=== PATIENT | female | born 1965 | race Caucasian/White ===

== ENCOUNTER 2016-09-16 17:29 | Inpatient (IN) ==
[~2016-09-16 17:29] MED LIST: *HR* Etomidate 20 MG/10 ML AMPUL IVP ONE; *HR* Midazolam HCl 2 MG/2 ML VIAL IV ONE; *HR* Succinylcholine 200 MG/10 ML VIAL IVP ONE
[2016-09-16] MEDS ORDERED: Ipratropium/Albuterol Neb 3 ML IH ONE (17:47)
--- NOTE | 2016-09-16 17:47 | Emergency Department Note ---
Disposition Clinical Impression: Acute exacerbation of chronic obstructive airways disease, Hypoxia Disposition: Home, Self-Care Condition: Fair Referrals: Elizabeth Celeste DO [Primary Care Provider] - Forms: ED Satisfaction Letter SOB HPI - General Chief Complaint: ED Shortness of Breath/Dyspnea Stated Complaint: COPD EXAC Time Seen by Provider: 09/16/16 17:45 Nursing Notes Reviewed: Yes Vital Signs Reviewed: Yes - Related Data Previous Rx's Medication Instructions Recorded Doxycycline 100 mg PO BID #4 capsule 08/08/16 Lidocaine Patch [Lidoderm 5% patch] 1 each TP DAILY #7 adh..patch 08/08/16 Methadone 65 mg PO DAILY tablet 08/08/16 Nicotine Patch [Nicoderm] 7 mg TD DAILY #14 patch.td24 08/08/16 Omeprazole 20 mg PO DAILY #10 tablet.dr 08/08/16 PredniSONE See Taper PO DAILY #11 tablet 08/08/16 Ropinirole [Requip] 1 mg PO TID tablet 08/08/16 Allergies Allergy/AdvReac Type Severity Reaction Status Date / Time tramadol Allergy Itching Verified 08/03/16 15:58 ketorolac [From Toradol] AdvReac Headache Verified 08/03/16 14:05 nalbuphine [From Nubain] AdvReac Vomiting Verified 08/03/16 14:05 Past Medical History - Past Medical History Medical history: Reports: CHF, COPD, osteoporosis Surgical history: Reports: breast surgery, - Social History Smoking Status: Current every day smoker Alcohol use: Reports: none Drug use: Reports: none Course Vital Signs Temperature 100.1 F H 09/16/16 17:47 Pulse Rate 117 09/16/16 17:47 Respiratory Rate 24 09/16/16 17:47 Blood Pressure 157/91 09/16/16 17:47 O2 Sat by Pulse Oximetry 94 L 09/16/16 17:47 Temperature 100.1 F H 09/16/16 17:47 Pulse Rate 113 09/16/16 20:06 Respiratory Rate 18 09/16/16 20:06 Blood Pressure 168/94 09/16/16 20:06 O2 Sat by Pulse Oximetry 89 L 09/16/16 20:06 Oxygen Delivery Oxygen Delivery Nasal Cannula Shortness of Breath/Dyspnea - MDM Narrative Medical decision making narrative: I examined this patient and my medical decision-making was reviewed with the ACCOUNTS RECEIVABLE ACCOUNTANT/PA/Advanced Practice Nurse/Resident Physician. I agree with the documented findings, disposition and treatment plan as described except to the extent set forth below. I evaluated this patient with Dr. Shultz group his evaluation and treatment plan, I supervised the care of the patient on stay. Patient's well-known to our ER shows COPD. She said she did not think she has pneumonia she has been coughing with some clear she has a problem with kyphosis and it is difficult for her to get good air in the base of her lungs she has wheezing. She did get [address] here. Last her second set of breathing treatments check a chest x-ray make sure she does not have pneumonia and then reassess. She is in agreement with this plan. Chest X-Ray 09/16/16 17:47 IMPRESSION: Emphysematous change. No evidence of acute disease. D/ / Flex Reed MD / Flex Reed MD Interpreting Provider: Flex Reed MD 1846 hrs.: Patient says she is feeling better. After respiratory was done with her treatment they left her off oxygen so she desatted. Back on oxygen and give her dose of steroids and reassessed. She still tachycardic lungs are more clear she is not coughing. 1940 hrs.: Patient did get nauseous here she is not certain why she did vomit times one. She denies any chest pain. She thinks her breathing is better. She up and ambulated and she desatted down to 63%. Her back on her oxygen was negative some lab work gave her something for nausea and will admit her to the hospital she is in agreement with this plan. Impression skin exacerbation of COPD with emphasema. Hypoxia. - Lab Data Result diagrams: 09/16/16 19:39 09/16/16 19:39 Lab Results 09/16/16 09/16/16 09/16/16 Range/Units 19:39 19:39 19:39 WBC 10.2 (4.3-11.1) K/mcL RBC 3.62 L (3.82-4.97) M/mcL Hgb 11.0 L (11.5-15.4) g/dL Hct 34.8 L (35.3-44.9) % MCV 96.1 (83.0-100.0) fL MCH 30.4 (28.0-33.3) pg MCHC 31.6 (31.6-35.5) g/dL RDW 14.4 (11.5-14.5) % Plt Count 163 (140-400) K/mcL MPV 9.5 (9.4-12.4) fL Seg Neutrophils % 82.0 % Band Neutrophils % 8.0 H (0-4) % Lymphocytes % 8.0 % Monocytes % 2.0 % Neutrophils # 9.2 H (1.6-8.9) K/mcL Lymphocytes # 0.8 (0.6-4.6) K/mcL Monocytes # 0.2 (0.0-1.3) K/mcL Platelet Estimate Normal (Normal) Immature Plt Fraction 2.2 (1.1-6.1) % Sodium 140 (136-145) mEq/L Potassium 3.2 L (3.5-4.5) mEq/L Chloride 105 (98-109) mEq/L Carbon Dioxide 25 (19-29) mEq/L BUN 13 (7-20) mg/dL Creatinine 1.18 H (0.57-1.11) mg/dL Est GFR ( Amer) 58 L (> 60) Est GFR (Non-Af Amer) 48 L (> 60) BUN/Creatinine Ratio 11 (6-26) Glucose 113 H (70-99) mg/dL Calculated Osmolality 291 (280-300) Calcium 9.4 (8.6-10.8) mg/dL Troponin I 0.01 (0-0.03) ng/mL
--- NOTE | 2016-09-16 17:51 | Emergency Department Note ---
Disposition Clinical Impression: Acute exacerbation of chronic obstructive airways disease, Hypoxia Disposition: Home, Self-Care Condition: Fair Referrals: Elizabeth Celeste DO [Primary Care Provider] - Forms: ED Satisfaction Letter Time of Disposition: 19:37 SOB HPI - General Chief Complaint: ED Shortness of Breath/Dyspnea Stated Complaint: COPD EXAC Time Seen by Provider: 09/16/16 17:45 Source: patient Mode of arrival: EMS Limitations: no limitations Nursing Notes Reviewed: Yes Vital Signs Reviewed: Yes - History of Present Illness 51-year-old female with a history of COPD and ongoing tobacco abuse presents to the emergency department for evaluation shortness of breath, cough and congestion. Patient states her symptoms going on now for several days and she feels like she is having another COPD exacerbation. Patient says she's cut back on her smoking and only smokes approximately 5-6 cigarettes a day. She states she is having increasing and production of her cough states that is beginning to turn a dark yellow. She denies any nausea or vomiting. She does state that she has chest wall pain with coughing. She denies any fevers or chills. Exam is remarkable for middle-aged female who appears much older than her stated age. Patient is oriented and well-appearing with a market kyphosis. Lungs are diminished with expiratory wheezing and rhonchi throughout bilateral lung canales. Heart is tachycardic but regular. Her abdomen is soft and surgically benign. Nebulizers and chest x-ray ordered. Pt Subjective Complaint: shortness of breath, cough Onset (ago): day(s) Context: recent illness Severity: moderate Improves with: oxygen, bronchodilators Worsens with: nothing Known history of: COPD Associated symptoms: Reports: cough, wheezing, sputum production Treatment prior to arrival: oxygen, bronchodilator Cough present: Yes Cough Description: Voluntary Cough Frequency: Intermittent Sputum production: Yes Sputum Amount: Moderate Sputum Color: Yellow - Related Data Previous Rx's Medication Instructions Recorded Doxycycline 100 mg PO BID #4 capsule 08/08/16 Lidocaine Patch [Lidoderm 5% patch] 1 each TP DAILY #7 adh..patch 08/08/16 Methadone 65 mg PO DAILY tablet 08/08/16 Nicotine Patch [Nicoderm] 7 mg TD DAILY #14 patch.td24 08/08/16 Omeprazole 20 mg PO DAILY #10 tablet. 08/08/16 PredniSONE See Taper PO DAILY #11 tablet 08/08/16 Ropinirole [Requip] 1 mg PO TID tablet 08/08/16 Allergies Allergy/AdvReac Type Severity Reaction Status Date / Time tramadol Allergy Itching Verified 08/03/16 15:58 ketorolac [From Toradol] AdvReac Headache Verified 08/03/16 14:05 nalbuphine [From Nubain] AdvReac Vomiting Verified 08/03/16 14:05 All systems ED: reviewed and negative except as stated. Constitutional: Denies: fever, chills Cardiovascular: Denies: chest pain, palpitations, dyspnea on exertion Respiratory: Reports: cough, dyspnea, wheezes Gastrointestinal: Denies: abdominal pain, nausea, vomiting Genitourinary: Denies: urgency, dysuria Musculoskeletal: Denies: back pain Integumentary: Denies: rash Neurological: Reports: headache. Denies: weakness Past Medical History - Past Medical History Medical history: Reports: CHF, COPD, osteoporosis Surgical history: Reports: breast surgery, - Social History Smoking Status: Current every day smoker Alcohol use: Reports: none Drug use: Reports: none Physical Exam - General Limitations: no limitations General appearance: alert, in no apparent distress - Head Head exam: atraumatic, normocephalic, normal inspection - Neck Neck exam: Present: other (Marked kyphosis) - Chest Chest inspection: Present: normal inspection, symmetric chest wall rise - Respiratory Respiratory exam: Present: wheezes, prolonged expiratory phase, other ( Expiratory wheezing and rhonchi noted throughout bilateral lung canales.) - Cardiovascular Cardiovascular exam: Present: normal rhythm, tachycardia, normal heart sounds - Abdominal Exam Abdominal exam: Present: soft, Non-Tender. Absent: tenderness, distention, guarding, rebound, rigidity - Back Exam Back exam: Present: other (Marked kyphosis of the thoracic spine) - Neurological Exam Neurological exam: Present: alert, oriented X3 - Skin Skin exam: Present: warm, dry, intact, normal color Course - Reevaluation(s) Reevaluation #1: Patient remains tachycardic and hypoxic despite nebulizers and steroids. Patient has several episodes of vomiting after nebulizers. Discussed findings with patient she is agreeable for admission. Time: 19:34 Reevaluation #2: Patient was off oxygen for short period of time to go the bathroom. When she returned her O2 saturation was 63% on room air. Patient was placed back on 4 L and increased up to 82%. She is tachycardic at 122 and tachypnea At 26 breaths per minute. Time: 19:54 Vital Signs Temperature 100.1 F H 09/16/16 17:47 Pulse Rate 117 09/16/16 17:47 Respiratory Rate 24 09/16/16 17:47 Blood Pressure 157/91 09/16/16 17:47 O2 Sat by Pulse Oximetry 94 L 09/16/16 17:47 Temperature 100.1 F H 09/16/16 17:47 Pulse Rate 108 09/16/16 19:30 Respiratory Rate 18 09/16/16 19:30 Blood Pressure 133/87 09/16/16 19:30 O2 Sat by Pulse Oximetry 93 L 09/16/16 19:30 Oxygen Delivery Oxygen Delivery Nasal Cannula Shortness of Breath/Dyspnea - Medical Records Medical records reviewed: Yes I reviewed the patient's medical records. - Radiology Data Radiology results reviewed: Yes I reviewed the patient's radiology results. - EKG Data EKG attestation: Yes I reviewed and interpreted this EKG. EKG shows normal: Reports: sinus rhythm Rate: Reports: tachycardia Rhythm: Reports: NSR [place]/QRS: Reports: normal Interpretation: Reports: no acute changes
[2016-09-16] MEDS ORDERED: methylPREDNISolone 125 MG/2 ML VIAL IV ONE (18:45)
[2016-09-16] MEDS ORDERED: *HR* Promethazine 25 MG/ML VIAL IVP ONE (19:25)
[2016-09-16] MEDS ORDERED: Ondansetron 4 MG/2 ML VIAL IV ONE (19:26)
[2016-09-16 19:49] LABS: Hematocrit 34.8 % (35.3-44.9); Immature Platelets 2.2 % (1.1-6.1); Mean Corpuscular HGB Conc 31.6 g/dL (31.6-35.5); Mean Corpuscular Hemoglobin 30.4 pg (28.0-33.3); Mean Corpuscular Volume 96.1 fL (83.0-100.0); Mean Platelet Volume 9.5 fL (9.4-12.4); Platelet Count 163 K/mcL (140-400); Red Blood Count 3.62 M/mcL (3.82-4.97); Red Cell Distribution Width 14.4 % (11.5-14.5)
[2016-09-16 20:04] LABS: Calcium 9.4 mg/dL (8.6-10.8); Potassium 3.2 mEq/L (3.5-4.5)
[2016-09-16 20:21] LABS: Lymphocytes # 0.8 K/mcL (0.6-4.6); Monocytes # 0.2 K/mcL (0.0-1.3); Neutrophils # 9.2 K/mcL (1.6-8.9)
[2016-09-16 20:22] LABS: Platelet Estimate Normal (Normal)
--- NOTE | 2016-09-16 22:35 | Internal Med History&Physical ---
Date of Encounter: 09/16/16 Time of Encounter: 22:33 Assessment and Plan (1) Acute bronchitis Current visit: Yes Status: Acute She is having fevers increased sputum production and worsening shortness of breath. Requiring 4 to 6 L of oxygen in the ER. Acute bronchitis versus pneumonia. will start the patient forms zosyn. I will get sputum on blood cultures. Qualifiers: Qualified Code(s): J20.9 - Acute bronchitis, unspecified (2) Acute exacerbation of chronic obstructive airways disease Current visit: Yes Status: Acute IV steroids and q4h breathing treatments. (3) Malnutrition Current visit: No Status: Chronic Patient's body mass indexes 15 kg/m mentioned that she had lost 20 to 30 pounds in the past six-month malignancy has to be. CT scan of the chest has not been performed before we get chest CT after hydration to avoid kidney injury as this is elective to r/o lung mass. She is a lifelong smoker still smokes. Healthcare Receptionist consultation (4) Respiratory failure Current visit: No Status: Chronic Hypoxic respiratory failure due to COPD exacerbation and suspected pneumonia Qualifiers: Chronicity: chronic Respiratory failure complication: hypoxia Qualified Code(s): J96.11 - Chronic respiratory failure with hypoxia Internal Medicine - H&P: HPI Chief complaint: sob History of present illness: Ms. Haley is a 51 year old female with history of COPD 2L home oxygen recently hospitalized last month for COPD exacerbation presents with shortness of breath and cough. For the past 2 days she has been having productive cough of yellowish sputum fevers and chills up to hundred .1 honorable to emergency room in addition to shortness of breath. She has been requiring 4- 6 L of oxygen in the emergency room to keep your saturation above 80%. She also mentioned that she has been losing weight significantly lost approximately 20 to 30 pounds in the past 6 months. She has also been complaining of headaches in the frontal areas and neck pain. No confusion. No focal upper or lower extremity weakness. Headaches are more or less chronic is not a new complaint. She is not in any antiplatelet or anticoagulant medications. Past Med Surg Social Fam HX - Past Medical History Medical history: CHF, COPD, osteoporosis Psychiatric history: no psych history - Past Surgical History Surgical History: breast surgery, - Social History Smoking Status: Current every day smoker Smokeless Tobacco Status: No Alcohol use: none Drug use: none - Family History Mother Hx Family Cardiac Disorders: Yes (chf) Internal Medicine - H&P: Meds Aclidinium [place] [Tudorza Pressair] 400 mcg IH BID 09/16/16 [History] Albuterol Sulfate [Proair Hfa] 1 puff IH Q4H PRN 09/16/16 [History] Fluticasone/Salmeterol [Advair 100-50 Diskus] 1 puff IH BID 09/16/16 [History] GuaiFENesin ER [Mucinex] 600 mg PO BID 09/16/16 [History] Lisinopril/Hydrochlorothiazide [Zestoretic 20-25 mg Tablet] 1 tab PO DAILY 09/16 [History] Methadone Oral Concentrate [Methadone] 65 mg PO DAILY 09/16/16 [History] Omeprazole [PriLOSEC] 20 mg PO DAILY 09/16/16 [History] Ropinirole HCl [Requip] 5 - 10 mg PO DAILY 09/16/16 [History] Allergies iodine Allergy (Verified 09/16/16 22:18) See Comments PATIENT DOES NOT KNOW REACTION- LISTED ON [facility] LAST APPT tramadol Allergy (Verified 08/03/16 15:58) Itching ketorolac [From Toradol] Adverse Reaction (Verified 08/03/16 14:05) Headache nalbuphine [From Nubain] Adverse Reaction (Verified 08/03/16 14:05) Vomiting All Systems PM: A 10-system review of systems was performed and is negative for pertinent findings except as documented above in the HPI. Review of systems: 10 point review systems is negative except for HPI - Constitutional Vitals: Temp Pulse Resp BP Pulse Ox 98 F 110 18 138/68 98 09/16/16 21:53 09/16/16 21:53 09/16/16 21:53 09/16/16 21:53 09/16/16 21:53 Exam: Gen.: patient is alert and oriented times 3 stress. Cachectic Serena: normal S1 S2 no additional sounds murmurs tachycardic. Chest: course with sounds diffusely expiratory wheezing NO CRACKLES abdomen: soft nontender nondistended normal BS lower extremity lax calf muscles Internal Med - H&P Results - Labs CBC & Chem 7: 09/16/16 19:39 09/16/16 19:39
[2016-09-16] MEDS ORDERED: *HR* HYDROcodone/Acet 5/325 mg TABLET PO PRN (22:49)
[2016-09-16 23:14] LABS: ABG HCO3 29.7 mEQ/L (21-27); ABG Oxygen Saturation 81 % (95-98); ABG PO2 56 mmHg (85-104); Blood Gas FiO2 36 %
[2016-09-16 23:16] LABS: ABG PCO2 76 mmHg (35-45)
[2016-09-16] MEDS: Piperacillin/Tazobactam 3.375 GM in D5% in Water (Mini-Bag+) 100 ML IVPB SCH (23:18)
[2016-09-16] MEDS ORDERED: Vancomycin 500 MG in D5% in Water 250 ML IVPB SCH (23:45)
[2016-09-16] MEDS ORDERED: Levofloxacin 750 MG/150 ML 750 MG/150 ML BAG IVPB SCH (23:45)
[2016-09-17] MEDS ORDERED: Ipratropium/Albuterol Neb 3 ML IH SCH
[2016-09-17] MEDS ORDERED: MethylPREDNISolone 40 MG/ML VIAL IVP SCH
[2016-09-17] MEDS: methylPREDNISolone 125 MG/2 ML VIAL IVP SCH ×5 (00:04→23:15)
[2016-09-17] MEDS: Ipratropium/Albuterol Neb 3 ML IH SCH ×9 (00:37→23:20)
[2016-09-17 00:52] LABS: Basophils % 0.2 %; Hematocrit 35.7 % (35.3-44.9); Hemoglobin 11.3 g/dL (11.5-15.4); Immature Granulocytes % 0.6 % (0-4); Immature Platelets 2.7 % (1.1-6.1); Lymphocytes # 1.3 K/mcL (0.6-4.6); Lymphocytes % 10.6 %; Mean Corpuscular HGB Conc 31.7 g/dL (31.6-35.5); Mean Corpuscular Hemoglobin 30.4 pg (28.0-33.3); Mean Platelet Volume 9.7 fL (9.4-12.4); Monocytes # 0.1 K/mcL (0.0-1.3); Neutrophils # 10.6 K/mcL (1.6-8.9); Platelet Count 163 K/mcL (140-400); Red Blood Count 3.72 M/mcL (3.82-4.97); Red Cell Distribution Width 14.3 % (11.5-14.5); Segmented Neutrophils % 87.6 %
[2016-09-17] MEDS ORDERED: Vancomycin 500 MG in D5% in Water (Mini-Bag+) 100 ML IVPB SCH ×2 (01:00→21:00)
[2016-09-17 01:05] LABS: BUN/Creatinine Ratio 12 (6-26); Blood Urea Nitrogen 13 mg/dL (7-20); Calcium 9.2 mg/dL (8.6-10.8); Carbon Dioxide 22 mEq/L (19-29); Chloride 104 mEq/L (98-109); Glucose 186 mg/dL (70-99); Magnesium 1.9 mg/dL (1.6-2.6); Osmolality,Calculated 291 (280-300); Potassium 3.9 mEq/L (3.5-4.5); Sodium 138 mEq/L (136-145); eGFR For African Americans > 60 (> 60); eGFR For Non-African Americans 54 (> 60)
[2016-09-17 01:29] LABS: Amphetamine Screen,Urine Negative ng/mL (Cutoff=1000); Barbiturate Screen,Urine Negative ng/mL (Cutoff=200); Benzodiazepines Screen,Urine Negative ng/mL (Cutoff=200); Cannabinoid Screen,Urine Negative ng/mL (Cutoff = 50); Cocaine Screen,Urine Negative ng/mL (Cutoff= 300); Opiate Screen,Urine Negative ng/mL (Cutoff=300); Phencyclidine Screen,Urine Negative ng/mL (Cutoff=25)
[2016-09-17 02:30] LABS: ABG Base Excess 0.7 mEq/L (-2.0 to 3.0); ABG HCO3 29.7 mEQ/L (21-27); ABG Oxygen Saturation 79 % (95-98); ABG PH 7.23 pH Units (7.32-7.45); ABG PO2 52 mmHg (85-104); ABG TCO2 31.9 mEq/L (20-26); Blood Gas FiO2 32 %
[2016-09-17 02:32] LABS: ABG PCO2 71 mmHg (35-45)
[2016-09-17] MEDS: *HR* Heparin 5,000 UNIT/ML VIAL SQ SCH ×2 (04:55→16:58)
[2016-09-17 05:04] LABS: ABG Base Excess 0.4 mEq/L (-2.0 to 3.0); ABG HCO3 29.3 mEQ/L (21-27); ABG Oxygen Saturation 100 % (95-98); ABG PH 7.23 pH Units (7.32-7.45); ABG PO2 315 mmHg (85-104); ABG TCO2 31.4 mEq/L (20-26)
[2016-09-17 05:08] LABS: Blood Gas FiO2 100 %
[2016-09-17 05:11] LABS: ABG PCO2 70 mmHg (35-45)
[2016-09-17] MEDS ORDERED: Famotidine 20 MG TABLET PO SCH (06:30)
[2016-09-17 06:57] LABS: Bilirubin,Urine Negative (Negative); Blood,Urine Negative (Negative); Clarity,Urine Clear (Clear); Color,Urine Yellow (Yellow); Glucose,Urine (UA) 250 mg/dL (Normal); Ketones,Urine Negative (Negative); Leukocyte Esterase,Urine Negative (Negative); Nitrite,Urine Negative (Negative); Protein,Urine 100 mg/dL (Neg-Trace); Specific Gravity,Urine 1.021 (1.010-1.025); Urobilinogen,Urine Normal (Normal)
[2016-09-17 06:59] LABS: Bacteria,Urine None Seen per hpf (None-Few); Hyaline Casts,Urine None Seen per lpf (None-Few); Squamous Epithelial Cell,Urine Many per lpf (None-Few); WBC,Urine 0-3 per hpf (0-3)
[2016-09-17] MEDS: Piperacillin/Tazobactam 3.375 GM in D5% in Water (Mini-Bag+) 100 ML IVPB SCH (07:14)
[2016-09-17] MEDS: rOPINIRole 3 MG, rOPINIRole 2 MG PO SCH (07:14)
[2016-09-17] MEDS: Budesonide/Formoterol 80/4.5 MDI IH SCH ×2 (07:33→19:46)
--- NOTE | 2016-09-17 07:33 | Pulmonology Consult Note ---
<JeseniaMarc navarro James - Last Filed: 09/17/16 11:57> Date of Encounter: 09/17/16 Time of Encounter: 07:33 Assessment and Plan (1) Acute on chronic respiratory failure with hypercapnia Current Visit: Yes Status: Acute Likely related to COPD exacerbation as discussed below. Intubated and mechanically ventilated. Appears to be improving. Possible attempt at liberation later today. (2) Acute exacerbation of chronic obstructive airways disease Current Visit: Yes Status: Acute Patient has respiratory failure related to an acute exacerbation of COPD. Patient has severe hyperinflation on chest x-ray. Patient is currently on mechanical ventilation which we are adjusting based on ABGs. Ventilation is improving. Patient is on Solu-Medrol 60 mg every 6 hours, bronchodilators, Levaquin. (3) History of drug abuse Current Visit: Yes Status: Acute Patient reportedly has a significant history of drug abuse. She is currently on methadone treatment. There is also reported history of methamphetamine abuse. Drug screen was negative. This is likely contributing to her significant weight loss. (4) DVT prophylaxis Current Visit: Yes Status: Acute Heparin 5000 units subcutaneous twice a day. History of Present Illness Consult date: 09/17/16 Requesting physician: Venancio Valdes Reason for consult: COPD Chief complaint: Dyspnea History of present illness: Patient is a 51-year-old female with history of COPD who presents with shortness of breath. Apparently the patient was having progressive shortness of breath with cough and sputum production. Upon arrival to the emergency department she was found to be in respiratory distress and was subsequently intubated. Unfortunately there is no family at the bedside so the history somewhat limited. At the time of my exam the patient is awake and alert but sedated and appears comfortable. Past Med Surg Social Fam HX - Past Medical History Medical history: CHF, COPD, osteoporosis Psychiatric history: no psych history - Past Surgical History Surgical History: breast surgery, - Social History Smoking Status: Current every day smoker Smokeless Tobacco Status: No Alcohol use: none Drug use: none - Family History Mother Hx Family Cardiac Disorders: Yes (chf) Medications and Allergies Aclidinium [place] [Tudorza Pressair] 400 mcg IH BID 09/16/16 [History] Albuterol Sulfate [Proair Hfa] 1 puff IH Q4H PRN 09/16/16 [History] Fluticasone/Salmeterol [Advair 100-50 Diskus] 1 puff IH BID 09/16/16 [History] GuaiFENesin ER [Mucinex] 600 mg PO BID 09/16/16 [History] Lisinopril/Hydrochlorothiazide [Zestoretic 20-25 mg Tablet] 1 tab PO DAILY 09/16 [History] Methadone Oral Concentrate [Methadone] 65 mg PO DAILY 09/16/16 [History] Omeprazole [PriLOSEC] 20 mg PO DAILY 09/16/16 [History] Ropinirole HCl [Requip] 5 - 10 mg PO DAILY 09/16/16 [History] Allergies iodine Allergy (Verified 09/16/16 22:18) See Comments PATIENT DOES NOT KNOW REACTION- LISTED ON [facility] LAST APPT tramadol Allergy (Verified 08/03/16 15:58) Itching ketorolac [From Toradol] Adverse Reaction (Verified 08/03/16 14:05) Headache nalbuphine [From Nubain] Adverse Reaction (Verified 08/03/16 14:05) Vomiting ROS unobtainable: due to endotracheal tube All Systems: A 10-system review of systems was performed and is negative for pertinent findings except as documented above in the HPI. Physical Examination Vital Signs: Vital Signs, Last 4 Hours Temp Pulse Resp BP Pulse Ox 09/17/16 07:00 85 18 150/95 98 09/17/16 06:00 83 16 96/71 100 09/17/16 04:52 83 16 96/71 100 09/17/16 04:05 98.4 F 92 16 89/67 70 L General appearance: no acute distress ENT: oropharynx moist Effort: normal Auscultation: bilateral: diminished breath sounds (Severely) Cardiovascular: regular rate and rhythm Gastrointestinal: normoactive bowel sounds, soft, non-tender, non-distended Extremities: no cyanosis, no edema, no clubbing non-focal exam, unable to assess due to mental status Ventilator Settings Ventilator Settings: Ventilator Settings, Last 8 Hours Ventilator Mode A/C Ventilator Mode A/C Ventilator Mode A/C Ventilator Mode A/C Ventilator Mode A/C Ventilator Tidal Volume 400 Setting Ventilator Tidal Volume 350 Setting Ventilator Tidal Volume 350 Setting Ventilator Tidal Volume 350 Setting Ventilator Tidal Volume 350 Setting Ventilator Respiratory Rate 18 Setting Ventilator Respiratory Rate 18 Setting Ventilator Respiratory Rate 16 Setting Ventilator Respiratory Rate 16 Setting Ventilator Respiratory Rate 16 Setting Actual Respiratory Rate 18 Actual Respiratory Rate 18 Actual Respiratory Rate 23 Actual Respiratory Rate 18 Actual Respiratory Rate 18 Positive End Expiratory 5 Pressure Positive End Expiratory 5 Pressure Positive End Expiratory 5 Pressure Positive End Expiratory 5 Pressure Positive End Expiratory 5 Pressure Peak Inspiratory Airway 24 Pressure Peak Inspiratory Airway 23 Pressure Peak Inspiratory Airway 23 Pressure Peak Inspiratory Airway 23 Pressure Peak Inspiratory Airway 23 Pressure Results - Laboratory Findings CBC and BMP: 09/17/16 00:42 09/17/16 00:42 ABG ABG pH 7.23 pH Units (7.32-7.45) L 09/17/16 04:50 ABG pCO2 70 mmHg (35-45) H* 09/17/16 04:50 ABG pO2 315 mmHg (85-104) H 09/17/16 04:50 ABG O2 Saturation 100 % (95-98) H 09/17/16 04:50 Abnormal lab findings: Abnormal lab results WBC 12.1 K/mcL (4.3-11.1) H 09/17/16 00:42 RBC 3.72 M/mcL (3.82-4.97) L 09/17/16 00:42 Hgb 11.3 g/dL (11.5-15.4) L 09/17/16 00:42 Band Neutrophils % 8.0 % (0-4) H 09/16/16 19:39 Neutrophils # 10.6 K/mcL (1.6-8.9) H 09/17/16 00:42 ABG pH 7.23 pH Units (7.32-7.45) L 09/17/16 04:50 ABG pCO2 70 mmHg (35-45) H* 09/17/16 04:50 ABG pO2 315 mmHg (85-104) H 09/17/16 04:50 ABG HCO3 29.3 mEQ/L (21-27) H 09/17/16 04:50 ABG Total CO2 31.4 mEq/L (20-26) H 09/17/16 04:50 ABG O2 Saturation 100 % (95-98) H 09/17/16 04:50 Est GFR (Non-Af Amer) 54 (> 60) L 09/17/16 00:42 Glucose 186 mg/dL (70-99) H 09/17/16 00:42 POC Glucose 159 (58-89) H 09/17/16 00:25 Urine Protein 100 mg/dL (Neg-Trace) H 09/17/16 06:37 Urine Glucose (UA) 250 mg/dL (Normal) H 09/17/16 06:37 Urine Microscopic RBC 3-5 per hpf (0-3) H 09/17/16 06:37 Ur Squamous Epith Cells Many per lpf (None-Few) H 09/17/16 06:37 - Clinical Findings Intake & Output: Intake & Output 09/16/16 09/16/16 09/17/16 15:59 23:59 07:59 Intake Total 416 / 416 Output Total 100 / 100 Balance 316 / 316 Consult Discharge Plan - Plan Referrals: Elizabeth Celeste DO [Primary Care Provider] - <Baldo Jung - Last Filed: 09/17/16 12:31> Date of Encounter: 09/17/16 All Systems: A 10-system review of systems was performed and is negative for pertinent findings except as documented above in the HPI. Physical Examination Vital Signs: Vital Signs, Last 4 Hours Temp Pulse Resp BP Pulse Ox 09/17/16 07:00 85 18 150/95 98 09/17/16 06:00 83 16 96/71 100 09/17/16 04:52 83 16 96/71 100 09/17/16 04:05 98.4 F 92 16 89/67 70 L Ventilator Settings Ventilator Settings: Ventilator Settings, Last 8 Hours Ventilator Mode A/C Ventilator Mode A/C Ventilator Mode A/C Ventilator Mode A/C Ventilator Mode A/C Ventilator Tidal Volume 400 Setting Ventilator Tidal Volume 350 Setting Ventilator Tidal Volume 350 Setting Ventilator Tidal Volume 350 Setting Ventilator Tidal Volume 350 Setting Ventilator Respiratory Rate 18 Setting Ventilator Respiratory Rate 18 Setting Ventilator Respiratory Rate 16 Setting Ventilator Respiratory Rate 16 Setting Ventilator Respiratory Rate 16 Setting Actual Respiratory Rate 18 Actual Respiratory Rate 18 Actual Respiratory Rate 23 Actual Respiratory Rate 18 Actual Respiratory Rate 18 Positive End Expiratory 5 Pressure Positive End Expiratory 5 Pressure Positive End Expiratory 5 Pressure Positive End Expiratory 5 Pressure Positive End Expiratory 5 Pressure Peak Inspiratory Airway 24 Pressure Peak Inspiratory Airway 23 Pressure Peak Inspiratory Airway 23 Pressure Peak Inspiratory Airway 23 Pressure Peak Inspiratory Airway 23 Pressure Results - Laboratory Findings CBC and BMP: 09/17/16 00:42 09/17/16 00:42 ABG ABG pH 7.23 pH Units (7.32-7.45) L 09/17/16 04:50 ABG pCO2 70 mmHg (35-45) H* 09/17/16 04:50 ABG pO2 315 mmHg (85-104) H 09/17/16 04:50 ABG O2 Saturation 100 % (95-98) H 09/17/16 04:50 Abnormal lab findings: Abnormal lab results WBC 12.1 K/mcL (4.3-11.1) H 09/17/16 00:42 RBC 3.72 M/mcL (3.82-4.97) L 09/17/16 00:42 Hgb 11.3 g/dL (11.5-15.4) L 09/17/16 00:42 Band Neutrophils % 8.0 % (0-4) H 09/16/16 19:39 Neutrophils # 10.6 K/mcL (1.6-8.9) H 09/17/16 00:42 ABG pH 7.23 pH Units (7.32-7.45) L 09/17/16 04:50 ABG pCO2 70 mmHg (35-45) H* 09/17/16 04:50 ABG pO2 315 mmHg (85-104) H 09/17/16 04:50 ABG HCO3 29.3 mEQ/L (21-27) H 09/17/16 04:50 ABG Total CO2 31.4 mEq/L (20-26) H 09/17/16 04:50 ABG O2 Saturation 100 % (95-98) H 09/17/16 04:50 Est GFR (Non-Af Amer) 54 (> 60) L 09/17/16 00:42 Glucose 186 mg/dL (70-99) H 09/17/16 00:42 POC Glucose 159 (58-89) H 09/17/16 00:25 Urine Protein 100 mg/dL (Neg-Trace) H 09/17/16 06:37 Urine Glucose (UA) 250 mg/dL (Normal) H 09/17/16 06:37 Urine Microscopic RBC 3-5 per hpf (0-3) H 09/17/16 06:37 Ur Squamous Epith Cells Many per lpf (None-Few) H 09/17/16 06:37 - Clinical Findings Intake & Output: Intake & Output 12/29/16 12/29/16 12/30/16 15:59 23:59 07:59 Intake Total 416 / 416 Output Total 100 / 100 Balance 316 / 316 - Attending Attestation I examined this patient and my medical decision-making was reviewed with the IGNITER ASSEMBLER/PA/Advanced Practice Nurse/Resident Physician. I agree with the documented findings, disposition and treatment plan as described except to the extent set forth below. I spent 40 min of Critical Care time with this patient. It involved decision making of high complexity to assess, manipulate, and support vital organ system failure and/or to prevent further life threatening deterioration of the patient' s condition. The time involved in the performance of separately reportable procedures was not counted toward critical care time. Patient seen and examined at bedside Labs, radiology, chart personally reviewed. All lines examined without evidence of infection. Neuro: Intuabted and sedated. Possible Underlying history of drug abuse. sedated on propfol and fentanyl. RASS goal (-2) Pulm: Acute on chronic hypoxic hypercapnic respiratory failure s/t COPD exacerbation. Vent adjusted for LTV and obstructive disease I:E = 3.2 no breath stacking. Repeat ABG reassuring. ?bronchitis or PNA although CXR without acute process. Cont BDs and Solumedrol Cards: ECG w/o STEMI. Trop wnl. cont to follow. FEN-GI: Start enteral feedings. GI prophylaxis given Renal: no TRAVIS acceptable UOP ID: cont levaquin d/c Vanz/Zosyn. Cultures pending including influenza Heme/Onc: DVT prophylaxis. Extensive Weight loss in smoker CT chest pending for concern of primary lung process. Endo: glucose monitored Integ: skin care per ICU protocol CODE: Full Code. Daughter updated at bedside
[2016-09-17] MEDS ORDERED: Lacri-Lube 3.5 GM TUBE BOTH EYES PRN (07:38)
[2016-09-17] MEDS ORDERED: Pantoprazole 40 MG VIAL IVP SCH (07:50)
[2016-09-17] MEDS: FentaNYL (PF) 1,000 MCG in 0.9 % Sodium Chloride 80 ML IVC SCH ×3 (08:12→17:31)
[2016-09-17] MEDS: Lacri-Lube 3.5 GM TUBE BOTH EYES SCH ×5 (08:20→23:25)
[2016-09-17] MEDS: Chlorhexidine Rinse 15 ML MOUTHWASH MM SCH ×2 (08:20→20:46)
[2016-09-17 08:50] LABS: ABG Base Excess 3.2 mEq/L (-2.0 to 3.0); ABG HCO3 30.4 mEQ/L (21-27); ABG Oxygen Saturation 85 % (95-98); ABG PCO2 59 mmHg (35-45); ABG PH 7.32 pH Units (7.32-7.45); ABG PO2 55 mmHg (85-104); ABG TCO2 32.2 mEq/L (20-26); Blood Gas FiO2 40 %
[2016-09-17] MEDS ORDERED: NON-FORMULARY MEDICATION 1 EACH EACH (Ropinirole Hcl [Requip] 5 MG) PO SCH (09:00)
[2016-09-17] MEDS ORDERED: Aminoglycoside Consult 1 EACH MC ONE (09:09)
[2016-09-17] MEDS ORDERED: 0.9 % Sodium Chloride 1,000 ML ONE (10:57)
[2016-09-17] MEDS ORDERED: 0.9 % Sodium Chloride 1,000 ML IVC SCH (11:00)
--- NOTE | 2016-09-17 11:33 | Electrocardiograph Report ---
[facility] Test Date: 2016-09-16 Pat Name: Saba Haley Department: 105 Room: 02 Gender: F Meat Pickler: KATHY : 1965 Requested By: Nikos Jackson Order Number: [id number] Reading MD: Patrick Hernandez Measurements Intervals [place] Rate: 119 P: 72 FL: 137 QRS: 60 QRSD: 94 T: 54 QT: 432 QTc: 502 Interpretive Statements SINUS TACHYCARDIA NONSPECIFIC T-WAVE ABNORMALITY ABNORMAL RHYTHM ECG Electronically Signed On 09-17-16 11:32:34 EST by Patrick Hernandez
[2016-09-17 13:41] LABS: Adenovirus Not Detected (Not Detect); Bordetella Pertussis Not Detected (Not Detect); Chlamydophila pneumoniae Not Detected (Not Detect); Coronavirus 229E Not Detected (Not Detect); Coronavirus HKU1 Not Detected (Not Detect); Coronavirus NL63 Not Detected (Not Detect); Coronavirus OC43 ***DETECTED*** (Not Detect); Human Metapneumovirus Not Detected (Not Detect); Human Rhinovirus/Enterovirus Not Detected (Not Detect); Influenza A Subtype 2009 H1 Not Detected (Not Detect); Influenza A Untypeable Not Detected (Not Detect); Influenza B Not Detected (Not Detect); Mycoplasma pneumoniae Not Detected (Not Detect); Parainfluenza Virus 1 Not Detected (Not Detect); Parainfluenza Virus 2 Not Detected (Not Detect); Parainfluenza Virus 3 Not Detected (Not Detect); Parainfluenza Virus 4 Not Detected (Not Detect); Respiratory Syncytial Virus Not Detected (Not Detect)
[2016-09-17 15:48] LABS: Hematocrit 31.1 % (35.3-44.9); Hemoglobin 9.9 g/dL (11.5-15.4); Immature Granulocytes % 0.4 % (0-4); Lymphocytes # 1.3 K/mcL (0.6-4.6); Lymphocytes % 12.3 %; Mean Corpuscular HGB Conc 31.8 g/dL (31.6-35.5); Mean Corpuscular Hemoglobin 30.5 pg (28.0-33.3); Mean Corpuscular Volume 95.7 fL (83.0-100.0); Mean Platelet Volume 9.8 fL (9.4-12.4); Monocytes # 0.4 K/mcL (0.0-1.3); Monocytes % 3.8 %; Neutrophils # 8.6 K/mcL (1.6-8.9); Platelet Count 142 K/mcL (140-400); Red Blood Count 3.25 M/mcL (3.82-4.97); Red Cell Distribution Width 14.1 % (11.5-14.5); Segmented Neutrophils % 83.5 %
[2016-09-17 15:58] LABS: Ionized Calcium 1.16 mmol/L (1.15-1.35)
[2016-09-17 16:02] LABS: BUN/Creatinine Ratio 17 (6-26); Blood Urea Nitrogen 17 mg/dL (7-20); Calcium 8.9 mg/dL (8.6-10.8); Carbon Dioxide 26 mEq/L (19-29); Chloride 102 mEq/L (98-109); Glucose 120 mg/dL (70-99); Magnesium 1.7 mg/dL (1.6-2.6); Osmolality,Calculated 289 (280-300); Phosphorous 2.6 mg/dL (2.3-4.7); Potassium 3.3 mEq/L (3.5-4.5); Sodium 138 mEq/L (136-145); eGFR For African Americans > 60 (> 60); eGFR For Non-African Americans 56 (> 60)
[2016-09-17] MEDS ORDERED: Potassium Phosphate 44 MEQ in 0.9 % Sodium Chloride 250 ML IVPB PRN (16:21)
[2016-09-17] MEDS ORDERED: Magnesium Sulfate 2 GM in D5% in Water 100 ML IVPB PRN (16:21)
[2016-09-17] MEDS ORDERED: Calcium Gluconate 1,000 MG in D5% in Water 100 ML IVPB PRN (16:21)
[2016-09-17] MEDS: 0.9 % Sodium Chloride 1,000 ML IVC SCH (16:57)
[2016-09-18] MEDS: 0.9 % Sodium Chloride 1,000 ML IVC SCH ×2 (00:09→12:04)
[2016-09-18] MEDS: FentaNYL (PF) 1,000 MCG in 0.9 % Sodium Chloride 80 ML IVC SCH ×2 (02:20→12:03)
[2016-09-18] MEDS: Ipratropium/Albuterol Neb 3 ML IH SCH ×6 (03:08→20:17)
[2016-09-18 04:38] LABS: ABG Base Excess -0.3 mEq/L (-2.0 to 3.0); ABG HCO3 26.2 mEQ/L (21-27); ABG Oxygen Saturation 93 % (95-98); ABG PCO2 52 mmHg (35-45); ABG PH 7.31 pH Units (7.32-7.45); ABG PO2 75 mmHg (85-104); ABG TCO2 27.8 mEq/L (20-26)
[2016-09-18 04:39] LABS: Blood Gas FiO2 40 %
[2016-09-18 04:43] LABS: Basophils % 0.1 %; Hematocrit 30.1 % (35.3-44.9); Hemoglobin 9.4 g/dL (11.5-15.4); Immature Granulocytes % 0.5 % (0-4); Immature Platelets 2.6 % (1.1-6.1); Lymphocytes # 1.1 K/mcL (0.6-4.6); Lymphocytes % 14.4 %; Mean Corpuscular HGB Conc 31.2 g/dL (31.6-35.5); Mean Corpuscular Hemoglobin 30.4 pg (28.0-33.3); Mean Corpuscular Volume 97.4 fL (83.0-100.0); Mean Platelet Volume 9.8 fL (9.4-12.4); Monocytes # 0.4 K/mcL (0.0-1.3); Monocytes % 4.9 %; Neutrophils # 6.3 K/mcL (1.6-8.9); Platelet Count 134 K/mcL (140-400); Red Blood Count 3.09 M/mcL (3.82-4.97); Red Cell Distribution Width 14.4 % (11.5-14.5); Segmented Neutrophils % 80.1 %
[2016-09-18 04:46] LABS: Ionized Calcium 1.09 mmol/L (1.15-1.35)
[2016-09-18 04:54] LABS: BUN/Creatinine Ratio 16 (6-26); Blood Urea Nitrogen 15 mg/dL (7-20); Calcium 8.5 mg/dL (8.6-10.8); Carbon Dioxide 22 mEq/L (19-29); Chloride 104 mEq/L (98-109); Glucose 171 mg/dL (70-99); Magnesium 2.5 mg/dL (1.6-2.6); Osmolality,Calculated 285 (280-300); Phosphorous 1.9 mg/dL (2.3-4.7); Sodium 135 mEq/L (136-145); eGFR For African Americans > 60 (> 60); eGFR For Non-African Americans > 60 (> 60)
[2016-09-18] MEDS: methylPREDNISolone 125 MG/2 ML VIAL IVP SCH ×4 (05:03→23:49)
[2016-09-18] MEDS: *HR* Heparin 5,000 UNIT/ML VIAL SQ SCH ×2 (05:04→18:25)
--- NOTE | 2016-09-18 07:17 | Pulmonology Progress Note ---
<Marc Paige - Last Filed: 09/18/16 09:38> Date of Encounter: 09/18/16 Time of Encounter: 07:17 Assessment and Plan (1) Acute on chronic respiratory failure with hypercapnia Current Visit: Yes Status: Acute Likely related to severe COPD and underlying pneumonia. Patient remains on mechanical ventilation and is improving. ABG is markedly better. Possible extubation today. (2) Acute exacerbation of chronic obstructive airways disease Current Visit: Yes Status: Acute With severe underlying disease. Continue bronchodilators, steroids, antibiotics. (3) Pneumonia Current Visit: Yes Status: Acute Improving. Strep pneumoniae antigen is positive. There is evidence of pneumonia on CT scan. Patient is covered with Levaquin. There is no record that the patient is receiving the Pneumovax in the past. Qualifiers: Pneumonia type: due to Pneumococcus Laterality: left Lung location: lower lobe of lung Qualified Code(s): J13 - Pneumonia due to Streptococcus pneumoniae (4) History of drug abuse Current Visit: Yes Status: Acute Patient has a history of opioid and methamphetamine abuse, she is currently on methadone. This is being held and she is receiving fentanyl for pain control. There is no evidence of withdrawal symptoms. (5) DVT prophylaxis Current Visit: Yes Status: Acute Abdomen 5000 units subcutaneous twice a day. Objective PUL Vital signs: Last Vital Signs Temp 97.7 F 09/18/16 03:00 Pulse 98 09/18/16 06:00 Resp 18 09/18/16 06:46 BP 110/65 09/18/16 06:46 Pulse Ox 97 09/18/16 06:46 Ventilator Settings Ventilator Settings: Ventilator Settings, Last 8 Hours Ventilator Mode A/C Ventilator Mode A/C Ventilator Mode A/C Ventilator Mode A/C Ventilator Mode A/C Ventilator Mode A/C Ventilator Mode A/C Ventilator Mode A/C Ventilator Mode A/C Ventilator Mode A/C Ventilator Mode A/C Ventilator Mode A/C Ventilator Tidal Volume 400 Setting Ventilator Tidal Volume 400 Setting Ventilator Tidal Volume 400 Setting Ventilator Tidal Volume 400 Setting Ventilator Tidal Volume 400 Setting Ventilator Tidal Volume 400 Setting Ventilator Tidal Volume 400 Setting Ventilator Tidal Volume 400 Setting Ventilator Tidal Volume 400 Setting Ventilator Tidal Volume 400 Setting Ventilator Tidal Volume 400 Setting Ventilator Tidal Volume 400 Setting Ventilator Respiratory Rate 18 Setting Ventilator Respiratory Rate 18 Setting Ventilator Respiratory Rate 18 Setting Ventilator Respiratory Rate 18 Setting Ventilator Respiratory Rate 18 Setting Ventilator Respiratory Rate 18 Setting Ventilator Respiratory Rate 18 Setting Ventilator Respiratory Rate 18 Setting Ventilator Respiratory Rate 18 Setting Ventilator Respiratory Rate 18 Setting Ventilator Respiratory Rate 18 Setting Ventilator Respiratory Rate 18 Setting Actual Respiratory Rate 18 Actual Respiratory Rate 18 Actual Respiratory Rate 18 Actual Respiratory Rate 18 Actual Respiratory Rate 18 Actual Respiratory Rate 18 Actual Respiratory Rate 18 Actual Respiratory Rate 18 Actual Respiratory Rate 18 Positive End Expiratory 5 Pressure Positive End Expiratory 5 Pressure Positive End Expiratory 5 Pressure Positive End Expiratory 5 Pressure Positive End Expiratory 5 Pressure Positive End Expiratory 5 Pressure Positive End Expiratory 5 Pressure Positive End Expiratory 5 Pressure Positive End Expiratory 5 Pressure Positive End Expiratory 5 Pressure Positive End Expiratory 5 Pressure Positive End Expiratory 5 Pressure Peak Inspiratory Airway 25 Pressure Peak Inspiratory Airway 26 Pressure Peak Inspiratory Airway 25 Pressure Peak Inspiratory Airway 35 Pressure Peak Inspiratory Airway 25 Pressure Peak Inspiratory Airway 25 Pressure Peak Inspiratory Airway 25 Pressure Peak Inspiratory Airway 29 Pressure Peak Inspiratory Airway 29 Pressure Results - Laboratory Findings CBC and BMP: 09/18/16 04:27 09/18/16 04:27 ABG ABG pH 7.31 pH Units (7.32-7.45) L 09/18/16 04:30 ABG pCO2 52 mmHg (35-45) H 09/18/16 04:30 ABG pO2 75 mmHg (85-104) L 09/18/16 04:30 ABG O2 Saturation 93 % (95-98) L 09/18/16 04:30 Abnormal lab findings: Abnormal lab results RBC 3.09 M/mcL (3.82-4.97) L 09/18/16 04:27 Hgb 9.4 g/dL (11.5-15.4) L 09/18/16 04:27 Hct 30.1 % (35.3-44.9) L 09/18/16 04:27 MCHC 31.2 g/dL (31.6-35.5) L 09/18/16 04:27 Plt Count 134 K/mcL (140-400) L 09/18/16 04:27 Band Neutrophils % 8.0 % (0-4) H 09/16/16 19:39 ABG pH 7.31 pH Units (7.32-7.45) L 09/18/16 04:30 ABG pCO2 52 mmHg (35-45) H 09/18/16 04:30 ABG pO2 75 mmHg (85-104) L 09/18/16 04:30 ABG Total CO2 27.8 mEq/L (20-26) H 09/18/16 04:30 ABG O2 Saturation 93 % (95-98) L 09/18/16 04:30 Sodium 135 mEq/L (136-145) L 09/18/16 04:27 Potassium 3.0 mEq/L (3.5-4.5) L 09/18/16 04:27 Glucose 171 mg/dL (70-99) H 09/18/16 04:27 POC Glucose 176 (58-89) H 09/18/16 00:03 Calcium 8.5 mg/dL (8.6-10.8) L 09/18/16 04:27 Ionized Calcium 1.09 mmol/L (1.15-1.35) L 09/18/16 04:27 Phosphorus 1.9 mg/dL (2.3-4.7) L 09/18/16 04:27 Urine Protein 100 mg/dL (Neg-Trace) H 09/17/16 06:37 Urine Glucose (UA) 250 mg/dL (Normal) H 09/17/16 06:37 Urine Microscopic RBC 3-5 per hpf (0-3) H 09/17/16 06:37 Ur Squamous Epith Cells Many per lpf (None-Few) H 09/17/16 06:37 Coronavirus OC43 (PCR) DETECTED (Not Detect) A 09/17/16 10:30 - Microbiology Findings Microbiology Findings: Microbiology, Last 48 Hours 09/16/16 23:06 Blood Culture - Preliminary Peripheral Venipuncture No growth. 09/16/16 23:06 Blood Culture - Preliminary Peripheral Venipuncture No growth. 09/17/16 10:30 Sputum Culture - Preliminary Sputum Streptococcus pneumoniae 09/17/16 Unknown Legionella Antigen - Final Urine,[place] Streptococcus pneumoniae Antigen (M - Final - Clinical Findings Intake & Output: Intake & Output 09/17/16 09/17/16 09/18/16 15:59 23:59 07:59 Intake Total 284 / 284 2329 / 2329 1828 / 1828 Output Total 295 / 295 150 / 150 200 / 200 Balance -11 2179 / 2179 1628 / 1628 Consult Discharge Plan - Plan Referrals: Elizabeth Celeste, [Primary Care Provider] - <Baldo Jung W - Last Filed: 09/18/16 17:47> Date of Encounter: 09/18/16 Objective PUL Vital signs: Last Vital Signs Temp 96.6 F L 09/18/16 08:06 Pulse 98 09/18/16 06:00 Resp 22 09/18/16 07:45 BP 103/75 09/18/16 07:45 Pulse Ox 97 09/18/16 07:45 Ventilator Settings Ventilator Settings: Ventilator Settings, Last 8 Hours Ventilator Mode A/C Ventilator Mode A/C Ventilator Mode A/C Ventilator Mode A/C Ventilator Mode A/C Ventilator Mode A/C Ventilator Mode A/C Ventilator Mode A/C Ventilator Mode A/C Ventilator Mode A/C Ventilator Mode A/C Ventilator Tidal Volume 400 Setting Ventilator Tidal Volume 400 Setting Ventilator Tidal Volume 400 Setting Ventilator Tidal Volume 400 Setting Ventilator Tidal Volume 400 Setting Ventilator Tidal Volume 400 Setting Ventilator Tidal Volume 400 Setting Ventilator Tidal Volume 400 Setting Ventilator Tidal Volume 400 Setting Ventilator Tidal Volume 400 Setting Ventilator Respiratory Rate 18 Setting Ventilator Respiratory Rate 18 Setting Ventilator Respiratory Rate 18 Setting Ventilator Respiratory Rate 18 Setting Ventilator Respiratory Rate 18 Setting Ventilator Respiratory Rate 18 Setting Ventilator Respiratory Rate 18 Setting Ventilator Respiratory Rate 18 Setting Ventilator Respiratory Rate 18 Setting Ventilator Respiratory Rate 18 Setting Actual Respiratory Rate 18 Actual Respiratory Rate 18 Actual Respiratory Rate 18 Actual Respiratory Rate 18 Actual Respiratory Rate 18 Actual Respiratory Rate 18 Actual Respiratory Rate 18 Actual Respiratory Rate 18 Positive End Expiratory 5 Pressure Positive End Expiratory 5 Pressure Positive End Expiratory 5 Pressure Positive End Expiratory 5 Pressure Positive End Expiratory 5 Pressure Positive End Expiratory 5 Pressure Positive End Expiratory 5 Pressure Positive End Expiratory 5 Pressure Positive End Expiratory 5 Pressure Positive End Expiratory 5 Pressure Positive End Expiratory 5 Pressure Peak Inspiratory Airway 12 Pressure Peak Inspiratory Airway 25 Pressure Peak Inspiratory Airway 26 Pressure Peak Inspiratory Airway 25 Pressure Peak Inspiratory Airway 35 Pressure Peak Inspiratory Airway 25 Pressure Peak Inspiratory Airway 25 Pressure Peak Inspiratory Airway 25 Pressure Results - Laboratory Findings CBC and BMP: 09/18/16 17:24 09/18/16 17:24 ABG ABG pH 7.31 pH Units (7.32-7.45) L 09/18/16 04:30 ABG pCO2 52 mmHg (35-45) H 09/18/16 04:30 ABG pO2 75 mmHg (85-104) L 09/18/16 04:30 ABG O2 Saturation 93 % (95-98) L 09/18/16 04:30 Abnormal lab findings: Abnormal lab results RBC 3.09 M/mcL (3.82-4.97) L 09/18/16 04:27 Hgb 9.4 g/dL (11.5-15.4) L 09/18/16 04:27 Hct 30.1 % (35.3-44.9) L 09/18/16 04:27 MCHC 31.2 g/dL (31.6-35.5) L 09/18/16 04:27 Plt Count 134 K/mcL (140-400) L 09/18/16 04:27 Band Neutrophils % 8.0 % (0-4) H 09/16/16 19:39 ABG pH 7.31 pH Units (7.32-7.45) L 09/18/16 04:30 ABG pCO2 52 mmHg (35-45) H 09/18/16 04:30 ABG pO2 75 mmHg (85-104) L 09/18/16 04:30 ABG Total CO2 27.8 mEq/L (20-26) H 09/18/16 04:30 ABG O2 Saturation 93 % (95-98) L 09/18/16 04:30 Sodium 135 mEq/L (136-145) L 09/18/16 04:27 Potassium 3.0 mEq/L (3.5-4.5) L 09/18/16 04:27 Glucose 171 mg/dL (70-99) H 09/18/16 04:27 POC Glucose 176 (58-89) H 09/18/16 00:03 Calcium 8.5 mg/dL (8.6-10.8) L 09/18/16 04:27 Ionized Calcium 1.09 mmol/L (1.15-1.35) L 09/18/16 04:27 Phosphorus 1.9 mg/dL (2.3-4.7) L 09/18/16 04:27 Urine Protein 100 mg/dL (Neg-Trace) H 09/17/16 06:37 Urine Glucose (UA) 250 mg/dL (Normal) H 09/17/16 06:37 Urine Microscopic RBC 3-5 per hpf (0-3) H 09/17/16 06:37 Ur Squamous Epith Cells Many per lpf (None-Few) H 09/17/16 06:37 Coronavirus OC43 (PCR) DETECTED (Not Detect) A 09/17/16 10:30 - Microbiology Findings Microbiology Findings: Microbiology, Last 48 Hours 09/16/16 23:06 Blood Culture - Preliminary Peripheral Venipuncture No growth. 09/16/16 23:06 Blood Culture - Preliminary Peripheral Venipuncture No growth. 09/17/16 10:30 Sputum Culture - Preliminary Sputum Streptococcus pneumoniae 09/17/16 Unknown Legionella Antigen - Final Urine,[place] Streptococcus pneumoniae Antigen (M - Final - Clinical Findings Intake & Output: Intake & Output 09/17/16 09/18/16 09/18/16 23:59 07:59 15:59 Intake Total 2329 / 2329 1828 / 1828 Output Total 150 / 150 200 / 200 275 / 275 Balance 2179 / 2179 1628 / 1628 -275 / -275 - Attending Attestation I examined this patient and my medical decision-making was reviewed with the COMMISSARY REPRESENTATIVE/PA/Advanced Practice Nurse/Resident Physician. I agree with the documented findings, disposition and treatment plan as described except to the extent set forth below. I spent 35 min of Critical Care time with this patient. It involved decision making of high complexity to assess, manipulate, and support vital organ system failure and/or to prevent further life threatening deterioration of the patient' s condition. The time involved in the performance of separately reportable procedures was not counted toward critical care time. Patient seen and examined at bedside Labs, radiology, chart personally reviewed. All lines examined without evidence of infection. Neuro: fully awake and alert some periodic agitation. Asking for Methadone Pulm: Acute on chronic hypoxic hypercapnic respiratory failure s/t COPD exacerbation with PNA. Liberated from vent doing well on Nasal Cannula O2. cont steroids bronchodilators and abx Cards: ECG w/o STEMI. Trop wnl. cont to follow. FEN-GI: bedside swallow eval post extubation if passes ADAT Renal: no TRAVIS acceptable UOP ID: Strep PNA and Coronavirus. Stable clinically. cont LEvaquin pending s/s Heme/Onc: DVT prophylaxis. Extensive Weight loss in smoker CT chest pending for concern of primary lung process but CT without obvious malignancy Endo: glucose monitored Integ: skin care per ICU protocol CODE: Full Code.
[2016-09-18] MEDS: Budesonide/Formoterol 80/4.5 MDI IH SCH ×2 (08:47→20:17)
[2016-09-18] MEDS ORDERED: Levofloxacin 750 MG/150 ML 750 MG/150 ML BAG IVPB SCH (09:00)
[2016-09-18] MEDS: Lacri-Lube 3.5 GM TUBE BOTH EYES SCH ×5 (09:41→23:50)
[2016-09-18] MEDS: Chlorhexidine Rinse 15 ML MOUTHWASH MM SCH ×2 (09:54→23:50)
[2016-09-18] MEDS: rOPINIRole 3 MG, rOPINIRole 2 MG PO SCH (09:55)
[2016-09-18] MEDS ORDERED: Albuterol 2.5 MG/3 ML NEBULIZER IH PRN (12:26)
[2016-09-18] MEDS: *HR* OxyCODONE/APAP 7.5/325 TABLET PO PRN ×2 (13:22→20:06)
[2016-09-18] MEDS: *HR* Methadone 10 MG TABLET PO SCH (14:47)
[2016-09-18] MEDS: Tiotropium 18 MCG inhalation IH SCH (15:13)
[2016-09-18 15:17] LABS: Ionized Calcium 1.2 mmol/L (1.15-1.35)
[2016-09-18 15:20] LABS: Phosphorous 2.2 mg/dL (2.3-4.7); Potassium 3.4 mEq/L (3.5-4.5)
[2016-09-18 17:33] LABS: Basophils % 0.1 %; Hematocrit 29.6 % (35.3-44.9); Hemoglobin 9.4 g/dL (11.5-15.4); Immature Granulocytes % 0.6 % (0-4); Immature Platelets 2.5 % (1.1-6.1); Lymphocytes # 1.5 K/mcL (0.6-4.6); Lymphocytes % 10.5 %; Mean Corpuscular HGB Conc 31.8 g/dL (31.6-35.5); Mean Corpuscular Volume 94.6 fL (83.0-100.0); Mean Platelet Volume 9.7 fL (9.4-12.4); Monocytes % 5.3 %; Neutrophils # 11.7 K/mcL (1.6-8.9); Platelet Count 167 K/mcL (140-400); Red Blood Count 3.13 M/mcL (3.82-4.97); Red Cell Distribution Width 14.7 % (11.5-14.5); Segmented Neutrophils % 83.5 %
[2016-09-18 17:34] LABS: Monocytes # 0.7 K/mcL (0.0-1.3)
[2016-09-18 17:44] LABS: BUN/Creatinine Ratio 18 (6-26); Blood Urea Nitrogen 14 mg/dL (7-20); Calcium 8.8 mg/dL (8.6-10.8); Carbon Dioxide 20 mEq/L (19-29); Chloride 109 mEq/L (98-109); Glucose 111 mg/dL (70-99); Osmolality,Calculated 289 (280-300); Potassium 3.5 mEq/L (3.5-4.5); Sodium 139 mEq/L (136-145); eGFR For African Americans > 60 (> 60); eGFR For Non-African Americans > 60 (> 60)
[2016-09-18] MEDS ORDERED: Acetaminophen 325 MG TABLET PO PRN (19:39)
[2016-09-18 22:30] LABS: Potassium 4.1 mEq/L (3.5-4.5)
[2016-09-18 22:31] LABS: Phosphorous 3.5 mg/dL (2.3-4.7)
[2016-09-19] MEDS: Ipratropium/Albuterol Neb 3 ML IH SCH ×7 (00:17→23:53)
[2016-09-19 05:09] LABS: Basophils % 0.1 %; Hematocrit 27.4 % (35.3-44.9); Hemoglobin 8.6 g/dL (11.5-15.4); Immature Granulocytes % 2.2 % (0-4); Lymphocytes # 1.5 K/mcL (0.6-4.6); Lymphocytes % 11.5 %; Mean Corpuscular HGB Conc 31.4 g/dL (31.6-35.5); Mean Corpuscular Hemoglobin 30.3 pg (28.0-33.3); Mean Corpuscular Volume 96.5 fL (83.0-100.0); Mean Platelet Volume 10.2 fL (9.4-12.4); Monocytes # 0.6 K/mcL (0.0-1.3); Monocytes % 4.3 %; Neutrophils # 10.6 K/mcL (1.6-8.9); Platelet Count 168 K/mcL (140-400); Red Blood Count 2.84 M/mcL (3.82-4.97); Red Cell Distribution Width 15.1 % (11.5-14.5); Segmented Neutrophils % 81.9 %
[2016-09-19 05:24] LABS: BUN/Creatinine Ratio 17 (6-26); Blood Urea Nitrogen 13 mg/dL (7-20); Calcium 8.8 mg/dL (8.6-10.8); Carbon Dioxide 21 mEq/L (19-29); Chloride 111 mEq/L (98-109); Glucose 100 mg/dL (70-99); Magnesium 2.6 mg/dL (1.6-2.6); Osmolality,Calculated 288 (280-300); Phosphorous 3.1 mg/dL (2.3-4.7); Potassium 4.6 mEq/L (3.5-4.5); Sodium 139 mEq/L (136-145); eGFR For African Americans > 60 (> 60); eGFR For Non-African Americans > 60 (> 60)
[2016-09-19] MEDS: *HR* Heparin 5,000 UNIT/ML VIAL SQ SCH ×2 (05:36→18:20)
[2016-09-19] MEDS: methylPREDNISolone 125 MG/2 ML VIAL IVP SCH ×3 (05:36→18:20)
[2016-09-19] MEDS: Lacri-Lube 3.5 GM TUBE BOTH EYES SCH (05:37)
[2016-09-19 05:52] LABS: Ionized Calcium 1.18 mmol/L (1.15-1.35)
[2016-09-19] MEDS: Budesonide/Formoterol 80/4.5 MDI IH SCH ×2 (08:40→20:30)
[2016-09-19] MEDS: Tiotropium 18 MCG inhalation IH SCH (08:41)
[2016-09-19] MEDS: rOPINIRole 3 MG, rOPINIRole 2 MG PO SCH (09:35)
[2016-09-19] MEDS: *HR* Methadone 10 MG TABLET PO SCH (09:40)
[2016-09-19] MEDS ORDERED: Lacri-Lube 3.5 GM TUBE BOTH EYES PRN (10:26)
[2016-09-19] MEDS ORDERED: *HR* OxyCODONE/APAP 7.5/325 TABLET PO PRN (10:26)
[2016-09-19] MEDS ORDERED: Calcium Gluconate 1,000 MG in D5% in Water 100 ML IVPB PRN (10:26)
[2016-09-19] MEDS ORDERED: Magnesium Sulfate 2 GM in D5% in Water 100 ML IVPB PRN (10:26)
[2016-09-19] MEDS ORDERED: Albuterol 2.5 MG/3 ML NEBULIZER IH PRN (10:26)
[2016-09-19] MEDS ORDERED: Potassium Phosphate 44 MEQ in 0.9 % Sodium Chloride 250 ML IVPB PRN (10:26)
[2016-09-19] MEDS: Acetaminophen 325 MG TABLET PO PRN (11:56)
--- NOTE | 2016-09-19 11:58 | Pulmonology Progress Note ---
Date of Encounter: 09/19/16 Time of Encounter: 11:55 Assessment and Plan (1) Acute exacerbation of chronic obstructive airways disease Current Visit: Yes Status: Acute Appears secondary to strep pneumonia with possible hameed viral infection. Continue steroids okay to transition to by mouth today 40 mg prednisone taper over 2 weeks. Continue bronchodilators every 4 hours as needed Continue scheduled metered-dose inhalers including Symbicort twice daily and Spiriva once daily. Patient takes Tudorza as LAMA at home but if she does not have access to this med would D/C patient on Spiriva Smoking cessation F/u in Pulmonary Clinic (2) Acute on chronic respiratory failure with hypercapnia Current Visit: Yes Status: Acute Acute pneumonia with COPD exacerbation Steinberg FiO2 to keep saturation greater than 89% to 92% Early ambulation out of bed tear and incentive spirometry (3) DVT prophylaxis Current Visit: Yes Status: Acute Recommend continued chemical DVT prophylaxis while inpatient (4) Pneumonia Current Visit: Yes Status: Acute Strep pneumonia pansensitive for concern over QT with methadone will transition from Levaquin to penicillin/cephalosporin Treatment for 7 days total overall doing very well Qualifiers: Pneumonia type: due to Pneumococcus Laterality: left Lung location: lower lobe of lung Qualified Code(s): J13 - Pneumonia due to Streptococcus pneumoniae (5) Malnutrition Current Visit: No Status: Chronic With concern for malignancy although CT scan was not suggestive of obvious malignancy. 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 Much less anxious denying pain breathing is near baseline overall she feels good sitting up eating breakfast Objective PUL Vital signs: Last Vital Signs Temp 98.1 F 09/19/16 10:28 Pulse 102 09/19/16 10:28 Resp 18 09/19/16 10:28 BP 147/82 09/19/16 10:28 Pulse Ox 92 L 09/19/16 10:28 General appearance: no acute distress ENT: oropharynx moist Neck: supple Effort: normal Auscultation: bilateral: diminished breath sounds, wheezes Cardiovascular: regular rate and rhythm Gastrointestinal: normoactive bowel sounds normal mental status, non-focal exam Results - Laboratory Findings CBC and BMP: 09/19/16 03:19 09/19/16 03:19 ABG ABG pH 7.31 pH Units (7.32-7.45) L 09/18/16 04:30 ABG pCO2 52 mmHg (35-45) H 09/18/16 04:30 ABG pO2 75 mmHg (85-104) L 09/18/16 04:30 ABG O2 Saturation 93 % (95-98) L 09/18/16 04:30 Abnormal lab findings: Abnormal lab results WBC 12.9 K/mcL (4.3-11.1) H 09/19/16 03:19 RBC 2.84 M/mcL (3.82-4.97) L 09/19/16 03:19 Hgb 8.6 g/dL (11.5-15.4) L 09/19/16 03:19 Hct 27.4 % (35.3-44.9) L 09/19/16 03:19 MCHC 31.4 g/dL (31.6-35.5) L 09/19/16 03:19 RDW 15.1 % (11.5-14.5) H 09/19/16 03:19 Band Neutrophils % 8.0 % (0-4) H 09/16/16 19:39 Neutrophils # 10.6 K/mcL (1.6-8.9) H 09/19/16 03:19 ABG pH 7.31 pH Units (7.32-7.45) L 09/18/16 04:30 ABG pCO2 52 mmHg (35-45) H 09/18/16 04:30 ABG pO2 75 mmHg (85-104) L 09/18/16 04:30 ABG Total CO2 27.8 mEq/L (20-26) H 09/18/16 04:30 ABG O2 Saturation 93 % (95-98) L 09/18/16 04:30 Potassium 4.6 mEq/L (3.5-4.5) H 09/19/16 03:19 Chloride 111 mEq/L (98-109) H 09/19/16 03:19 Glucose 100 mg/dL (70-99) H 09/19/16 03:19 POC Glucose 113 (58-89) H 09/18/16 23:12 Urine Protein 100 mg/dL (Neg-Trace) H 09/17/16 06:37 Urine Glucose (UA) 250 mg/dL (Normal) H 09/17/16 06:37 Urine Microscopic RBC 3-5 per hpf (0-3) H 09/17/16 06:37 Ur Squamous Epith Cells Many per lpf (None-Few) H 09/17/16 06:37 Coronavirus OC43 (PCR) DETECTED (Not Detect) A 09/17/16 10:30 - Microbiology Findings Microbiology Findings: Microbiology, Last 48 Hours 09/17/16 10:30 Sputum Culture - Preliminary Sputum Streptococcus pneumoniae 09/16/16 23:06 Blood Culture - Preliminary Peripheral Venipuncture No growth. 09/16/16 23:06 Blood Culture - Preliminary Peripheral Venipuncture No growth. 09/17/16 Unknown Legionella Antigen - Final Urine,[place] Streptococcus pneumoniae Antigen (M - Final - Clinical Findings Intake & Output: Intake & Output 09/18/16 09/19/16 09/19/16 23:59 07:59 15:59 Intake Total 340 / 340 0 / 0 Output Total 1600 / 1600 800 / 800 630 / 630 Balance -1260 / -1260 -800 / -800 -630 / -630 Weight 43.545 kg Consult Discharge Plan - Plan Referrals: Elizabeth Celeste DO [Primary Care Provider] -
[2016-09-19] MEDS ORDERED: Lacri-Lube 3.5 GM TUBE BOTH EYES SCH (12:00)
[2016-09-19] MEDS: Chlorhexidine Rinse 15 ML MOUTHWASH MM SCH (21:55)
[2016-09-20] MEDS: methylPREDNISolone 125 MG/2 ML VIAL IVP SCH ×2 (00:44→05:53)
[2016-09-20] MEDS: Ipratropium/Albuterol Neb 3 ML IH SCH ×3 (04:06→11:26)
[2016-09-20] MEDS: *HR* Heparin 5,000 UNIT/ML VIAL SQ SCH ×2 (05:52→17:24)
[2016-09-20] MEDS: Budesonide/Formoterol 80/4.5 MDI IH SCH ×2 (07:47→21:38)
[2016-09-20] MEDS: Tiotropium 18 MCG inhalation IH SCH (07:50)
[2016-09-20] MEDS: Chlorhexidine Rinse 15 ML MOUTHWASH MM SCH (09:37)
[2016-09-20] MEDS: rOPINIRole 3 MG, rOPINIRole 2 MG PO SCH (09:37)
[2016-09-20] MEDS: *HR* Methadone 10 MG TABLET PO SCH (09:38)
[2016-09-20 11:30] LABS: Basophils % 0.3 %; Hematocrit 31.2 % (35.3-44.9); Hemoglobin 9.9 g/dL (11.5-15.4); Immature Granulocytes % 1.7 % (0-4); Lymphocytes # 2.3 K/mcL (0.6-4.6); Lymphocytes % 17.5 %; Mean Corpuscular HGB Conc 31.7 g/dL (31.6-35.5); Mean Corpuscular Hemoglobin 30.9 pg (28.0-33.3); Mean Corpuscular Volume 97.5 fL (83.0-100.0); Mean Platelet Volume 9.5 fL (9.4-12.4); Monocytes # 0.7 K/mcL (0.0-1.3); Platelet Count 196 K/mcL (140-400); Red Cell Distribution Width 14.9 % (11.5-14.5); Segmented Neutrophils % 75.5 %
[2016-09-20 11:41] LABS: BUN/Creatinine Ratio 19 (6-26); Blood Urea Nitrogen 15 mg/dL (7-20); Calcium 9.2 mg/dL (8.6-10.8); Carbon Dioxide 24 mEq/L (19-29); Chloride 103 mEq/L (98-109); Glucose 118 mg/dL (70-99); Osmolality,Calculated 286 (280-300); Potassium 4.5 mEq/L (3.5-4.5); Sodium 137 mEq/L (136-145); eGFR For African Americans > 60 (> 60); eGFR For Non-African Americans > 60 (> 60)
[2016-09-20] MEDS ORDERED: MethylPREDNISolone 40 MG/ML VIAL IVP SCH (13:00)
[2016-09-20] MEDS ORDERED: Ipratropium/Albuterol Neb 3 ML IH PRN (13:00)
--- NOTE | 2016-09-20 14:10 | Electrocardiograph Report ---
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
--- NOTE | 2016-09-20 15:31 | Internal Med Progress Note ---
Date of Encounter: 09/20/16 Time of Encounter: 15:28 - Assessment and plan (1) Acute exacerbation of chronic obstructive airways disease Current Visit: Yes Status: Acute Assessment and plan: Appears secondary to strep pneumonia with possible hameed viral infection. Continue bronchodilators every 4 hours as needed, steroids has been changed to oral Continue Symbicort twice daily and Spiriva once daily. Patient takes Tudorza as LAMA at home but if she does not have access to this med would D/C patient on Spiriva Smoking cessation F/u in Pulmonary Clinic (2) Acute on chronic respiratory failure with hypercapnia Current Visit: Yes Status: Acute Assessment and plan: 2/ Acute pneumonia with COPD exacerbation maintaining sats 93% on 2.5 l of NC. Early ambulation out of bed and incentive spirometry (3) Pneumonia Current Visit: Yes Status: Acute Assessment and plan: Strep pneumonia pansensitive for concern over QT with methadone , was started on ceftriaxone. Treatment for 7 days total . 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 Denies any chest pain or shortness of breath.had no issues overnight. trasnferred from ICU last night, admitted for acute COPD exacerbation. - Constitutional Vitals: Temp Pulse Resp BP Pulse Ox 97.9 F 111 16 162/89 93 L 09/20/16 11:09 09/20/16 11:09 09/20/16 11:26 09/20/16 11:09 09/20/16 11:26 General appearance: Present: A&O X 3, no acute distress Exam: General appearance: no acute distress ENT: oropharynx moist Neck: supple Effort: normal Auscultation: bilateral: diminished breath sounds, occasional wheezing Cardiovascular: regular rate and rhythm Gastrointestinal: normoactive bowel sounds normal mental status, non-focal exam Internal Medicine: Result - Labs CBC & Chem 7: 09/20/16 11:19 09/20/16 11:19 Labs: Short CBC 09/20/16 Range/Units 11:19 WBC 13.2 H (4.3-11.1) K/mcL Hgb 9.9 L (11.5-15.4) g/dL Hct 31.2 L (35.3-44.9) % Plt Count 196 (140-400) K/mcL Neutrophils # 10.0 H (1.6-8.9) K/mcL BMP 09/20/16 11:19 Sodium 137 Potassium 4.5 Chloride 103 Carbon Dioxide 24 BUN 15 Creatinine 0.78 Glucose 118 H Calcium 9.2 - ABG Interpretation ABG results: ABG ABG pH 7.31 pH Units (7.32-7.45) L 09/18/16 04:30 ABG pCO2 52 mmHg (35-45) H 09/18/16 04:30 ABG pO2 75 mmHg (85-104) L 09/18/16 04:30 ABG O2 Saturation 93 % (95-98) L 09/18/16 04:30 Consult Discharge Plan - Plan Referrals: Elizabeth Celeste, [Primary Care Provider] - (Call on Tuesday09-21-16 to schedule follow-up appointment. Unable to do a Web request, office closed due to holiday until Tuesday09-21-16. )
[2016-09-20] MEDS ORDERED: amLODIPine 5 MG TABLET PO SCH (16:30)
[2016-09-20] MEDS: amLODIPine 5 MG TABLET PO SCH (16:43)
[2016-09-20] MEDS: MethylPREDNISolone 40 MG/ML VIAL IVP SCH (22:04)
[2016-09-20] MEDS: Acetaminophen 325 MG TABLET PO PRN (22:11)
[2016-09-21] MEDS: *HR* Heparin 5,000 UNIT/ML VIAL SQ SCH (06:02)
[2016-09-21] MEDS: MethylPREDNISolone 40 MG/ML VIAL IVP SCH (06:02)
[2016-09-21 07:28] LABS: Basophils # 0.1 K/mcL (0.0-0.2); Basophils % 0.5 %; Hematocrit 34.7 % (35.3-44.9); Hemoglobin 11.1 g/dL (11.5-15.4); Immature Granulocytes % 2.3 % (0-4); Lymphocytes # 4.2 K/mcL (0.6-4.6); Lymphocytes % 28.9 %; Mean Corpuscular Hemoglobin 30.4 pg (28.0-33.3); Mean Corpuscular Volume 95.1 fL (83.0-100.0); Mean Platelet Volume 9.7 fL (9.4-12.4); Monocytes # 0.8 K/mcL (0.0-1.3); Monocytes % 5.6 %; Neutrophils # 9.2 K/mcL (1.6-8.9); Platelet Count 259 K/mcL (140-400); Red Blood Count 3.65 M/mcL (3.82-4.97); Red Cell Distribution Width 14.2 % (11.5-14.5); Segmented Neutrophils % 62.7 %
[2016-09-21 07:34] LABS: BUN/Creatinine Ratio 17 (6-26); Blood Urea Nitrogen 13 mg/dL (7-20); Calcium 9.5 mg/dL (8.6-10.8); Carbon Dioxide 27 mEq/L (19-29); Chloride 94 mEq/L (98-109); Glucose 119 mg/dL (70-99); Osmolality,Calculated 275 (280-300); Potassium 4.2 mEq/L (3.5-4.5); Sodium 132 mEq/L (136-145); eGFR For African Americans > 60 (> 60); eGFR For Non-African Americans > 60 (> 60)
[2016-09-21] MEDS: Budesonide/Formoterol 80/4.5 MDI IH SCH (07:58)
[2016-09-21] MEDS: Tiotropium 18 MCG inhalation IH SCH (07:58)
[2016-09-21] MEDS: *HR* Methadone 10 MG TABLET PO SCH (09:07)
[2016-09-21] MEDS: rOPINIRole 3 MG, rOPINIRole 2 MG PO SCH (09:09)
[2016-09-21] MEDS: amLODIPine 5 MG TABLET PO SCH (09:11)
[2016-09-21 12:55] VITALS: BP 164/105
[2016-09-21] MEDS ORDERED: amLODIPine 5 MG TABLET PO ONE (13:33)
--- NOTE | 2016-09-21 13:41 | Discharge Summary ---
Date of Encounter: 09/21/16 Time of Encounter: 13:34 - Discharge Diagnosis (1) Acute exacerbation of chronic obstructive airways disease Priority: Primary Status: Acute (2) Acute on chronic respiratory failure with hypercapnia Priority: Primary Status: Acute (3) Pneumonia Priority: Primary Status: Acute Qualifiers: Pneumonia type: due to Pneumococcus Laterality: left Lung location: lower lobe of lung Qualified Code(s): J13 - Pneumonia due to Streptococcus pneumoniae (4) Malnutrition Priority: Secondary Status: Chronic (5) Methadone maintenance therapy patient Priority: Secondary Status: Chronic - Discharge Medications Prescriptions: Amlodipine [Norvasc] 10 mg PO DAILY #30 tablet Cefdinir [Omnicef] 300 mg PO BID 2 Days PredniSONE 10 mg PO DAILY #21 tablet Tiotropium [Spiriva] 18 mcg IH DAILY@0700 #2 inh Home Medications: Aclidinium Desdemona [Tudorza Pressair] 400 mcg IH BID 09/16/16 [History] Albuterol Sulfate [Proair Hfa] 1 puff IH Q4H PRN 09/16/16 [History] Fluticasone/Salmeterol [Advair 100-50 Diskus] 1 puff IH BID 09/16/16 [History] GuaiFENesin ER [Mucinex] 600 mg PO BID 09/16/16 [History] Lisinopril/Hydrochlorothiazide [Zestoretic 20-25 mg Tablet] 1 tab PO DAILY 09/16 [History] Methadone Oral Concentrate [Methadone] 65 mg PO DAILY 09/16/16 [History] Omeprazole [PriLOSEC] 20 mg PO DAILY 09/16/16 [History] Ropinirole HCl [Requip] 5 - 10 mg PO DAILY 09/16/16 [History] Amlodipine [Norvasc] 10 mg PO DAILY #30 tablet 09/21/16 [Rx] Cefdinir [Omnicef] 300 mg PO BID 2 Days 09/21/16 [Rx] PredniSONE 10 mg PO DAILY #21 tablet 09/21/16 [Rx] Tiotropium [Spiriva] 18 mcg IH DAILY@0700 #2 inh 09/21/16 [Rx] Allergies/Adverse Reactions: Allergies iodine Allergy (Verified 09/16/16 22:18) See Comments PATIENT DOES NOT KNOW REACTION- LISTED ON [facility] LAST APPT tramadol Allergy (Verified 08/03/16 15:58) Itching ketorolac [From Toradol] Adverse Reaction (Verified 08/03/16 14:05) Headache nalbuphine [From Nubain] Adverse Reaction (Verified 08/03/16 14:05) Vomiting Date of admission: 09/16/16 22:29 Primary care physician: Elizabeth Celeste DO Consults: 09/20/16 11:17 Consult to Physical Therapy [CONS] Routine Comment: Evaluate, develop and implement POC OT [Consult to Occupational Therapy] [CONS] Routine Comment: Evaluate, develop and implement POC Discharging clinician: Diane Mckeon Anticipated date of discharge: 09/21/16 - Patient Status Disposition: Home, Self-Care Condition: Fair Functional capacity at discharge: independent ambulation Overall status at discharge: patient is back to baseline - Discharge Instructions Instructions: Chronic Obstructive Pulmonary Disease (GEN), Pneumonia (DC), COPD Exacerbation, 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 Unable to do a Web request, office closed due to holiday until Tuesday09-21-16. ) - Diet and Activity Activity: resume usual activities as tolerated Diet: advance to your usual diet Interval History: Ms. Haley is a 51 year old female with history of COPD 2L home oxygen recently hospitalized last month for COPD exacerbation presents with shortness of breath and cough. For the past 2 days she has been having productive cough of yellowish sputum fevers and chills up to hundred .1 honorable to emergency room in addition to shortness of breath. She has been requiring 4- 6 L of oxygen in the emergency room to keep your saturation above 80%. She also mentioned that she has been losing weight significantly lost approximately 20 to 30 pounds in the past 6 months. She has also been complaining of headaches in the frontal areas and neck pain. No confusion. No focal upper or lower extremity weakness. Headaches are more or less chronic is not a new complaint. She is not in any antiplatelet or anticoagulant medications. Hospital course: she was admitted for acute on chronic respiratory failure with hypercapnia 2/2 strep pneumonia with possible hameed viral infection. Likely related to COPD exacerbation , was Intubated and mechanically ventilated. Patient was started on Solu-Medrol 60 mg every 6 hours, bronchodilators, Levaquin.Strep pneumoniae antigen is positive. There is evidence of pneumonia on CT scan. Patient is covered with Levaquin. she improved on the above tretament,eventually extubated, steroid was changed to oral, saturating well in 2-3 l of NC. she is being dc in stable condition, she was added on amlod 10 mg daily as her BP was trending up. her methadone dose was also confirmed with the pharmacy and she will be given scripts at tx. she was given a followup with her PCP in the clinic. Time spent discussing smoking cessation with patient: more than 10 minutes - Time Spent with Patient Total time spent providing and/or coordinating discharge services: Greater than 30 minutes - Constitutional Vitals: Temp Pulse Resp BP Pulse Ox 98.3 F 107 19 164/105 94 L 09/21/16 12:54 09/21/16 12:54 09/21/16 12:54 09/21/16 12:54 09/21/16 12:54 General appearance: Present: A&O X 3, no acute distress Exam: General appearance: no acute distress ENT: oropharynx moist Neck: supple Effort: normal Auscultation: bilateral: clear, no additonal breath sounds Cardiovascular: regular rate and rhythm Gastrointestinal: normoactive bowel sounds normal mental status, non-focal exam
[2016-09-22] MEDS ORDERED: MethylPREDNISolone 40 MG/ML VIAL IVP SCH (06:00)
== END 2016-09-21 15:22 | disposition home or self-care (01) | DRG 951 ==
LOC: EMEROO 17:29 → 3BNU 17:29 → ICNU 09-17 00:53 → 2ANU 09-19 10:24
PROVIDERS: ADMIT Family Medicine; ATTEND Internal Medicine Endocrinology, Diabetes & Metabolism

== ENCOUNTER 2016-11-25 09:30 | Inpatient (IN) ==
[2016-11-25] MEDS ORDERED: Ipratropium/Albuterol Neb 3 ML IH ONE (09:36)
--- NOTE | 2016-11-25 09:40 | Emergency Department Note ---
START Narrative - START START: I examined this patient and my medical decision-making was reviewed with the TAPPING MACHINE OPERATOR AUTOMATIC/PA/Advanced Practice Nurse/Resident Physician. I agree with the documented findings, disposition and treatment plan as described except to the extent set forth below. ED attending note: Patient seen with emergency medicine resident Dr. Osorio. Please see a copy of his note for details of the H&P, evaluation, management and disposition of this patient. We independently had [id number] contact with the patient Briefly: A 51-year-old smoker end-stage COPD, presents to the emergency department via EMS for increasing shortness breath and cough. Patient stated upfront during the initial H&P that she does not want intubation or BiPAP. She stated cachectic to Hypoxic tachycardic. We will give her nebs and steroids. Plan on admitting. She will get labs and EKG and chest x-ray. Disposition pending, however, prognosis guarded. Rehabilitation provided 45 minutes of critical care services for this patient.
[2016-11-25] MEDS: methylPREDNISolone 125 MG/2 ML VIAL IVP ONE ×2 (09:51→18:24)
[2016-11-25 09:58] LABS: Basophils % 0.1 %; Hematocrit 35.6 % (35.3-44.9); Hemoglobin 10.9 g/dL (11.5-15.4); Immature Granulocytes % 0.3 % (0-4); Lymphocytes % 11.2 %; Mean Corpuscular HGB Conc 30.6 g/dL (31.6-35.5); Mean Corpuscular Volume 94.7 fL (83.0-100.0); Mean Platelet Volume 9.6 fL (9.4-12.4); Monocytes # 0.7 K/mcL (0.0-1.3); Monocytes % 7.9 %; Platelet Count 115 K/mcL (140-400); Red Blood Count 3.76 M/mcL (3.82-4.97); Red Cell Distribution Width 13.1 % (11.5-14.5); Segmented Neutrophils % 80.5 %
[2016-11-25 10:10] LABS: BUN/Creatinine Ratio 14 (6-26); Blood Urea Nitrogen 14 mg/dL (7-20); Calcium 9.4 mg/dL (8.6-10.8); Carbon Dioxide 27 mEq/L (19-29); Chloride 102 mEq/L (98-109); Glucose 127 mg/dL (70-99); Osmolality,Calculated 288 (280-300); Potassium 3.8 mEq/L (3.5-4.5); Sodium 138 mEq/L (136-145); eGFR For African Americans > 60 (> 60); eGFR For Non-African Americans > 60 (> 60)
--- NOTE | 2016-11-25 10:10 | Emergency Department Note ---
Disposition Clinical Impression: COPD exacerbation Disposition: Admitted As Inpatient Condition: Good Referrals: Elizabeth Celeste DO [Primary Care Provider] - Forms: ED Satisfaction Letter SOB HPI - General Chief Complaint: ED Shortness of Breath/Dyspnea Stated Complaint: CODP Exacerbation Time Seen by Provider: 11/25/16 09:36 Source: patient, EMS Mode of arrival: EMS Limitations: no limitations Nursing Notes Reviewed: Yes Vital Signs Reviewed: Yes - History of Present Illness 51-year-old female history of COPD on 2 L oxygen continuously presents to the ER via EMS with a chief complaint of shortness of breath. Patient reports that she started feeling unwell yesterday. EMS states that whenever they got there she was 70% on 2 L. This improved to 95% with a DuoNeb. Patient reports a cough at home no productive sputum. She denies fevers at home or chest pain. Upon arrival patient states that she has been intubated in the past and does not warrant to be intubated if that was required. She also defers BiPAP because she states it feels uncomfortable. She denies any history of UT, DVT or PE. No other complaints. Pt Subjective Complaint: shortness of breath Onset (ago): day(s) Context: recent illness Severity: moderate Consistency/Duration: constant Improves with: oxygen Worsens with: nothing Known history of: COPD Associated symptoms: Reports: cough. Denies: chest pain, fever, wheezing, sputum production, lower extremity pain Treatment prior to arrival: oxygen, bronchodilator Cough present: Yes Cough Description: Involuntary Sputum production: No Sputum Amount: None - Related Data Home oxygen amount: 2 liters Home Medications Medication Instructions Recorded Confirmed Aclidinium [place] [Tudorza 400 mcg IH BID 09/16/16 09/16/16 Pressair] Albuterol Sulfate [Proair Hfa] 1 puff IH Q4H PRN 09/16/16 09/16/16 Fluticasone/Salmeterol [Advair 1 puff IH BID 09/16/16 09/16/16 100-50 Diskus] GuaiFENesin ER [Mucinex] 600 mg PO BID 09/16/16 09/16/16 Lisinopril/Hydrochlorothiazide 1 tab PO DAILY 09/16/16 09/16/16 [Zestoretic 20-25 mg Tablet] Methadone Oral Concentrate 65 mg PO DAILY 09/16/16 09/16/16 [Methadone] Omeprazole [PriLOSEC] 20 mg PO DAILY 09/16/16 09/16/16 Ropinirole HCl [Requip] 5 - 10 mg PO DAILY 09/16/16 09/16/16 Previous Rx's Medication Instructions Recorded Amlodipine [Norvasc] 10 mg PO DAILY #30 tablet 09/21/16 Cefdinir [Omnicef] 300 mg PO BID 2 Days 09/21/16 PredniSONE 10 mg PO DAILY #21 tablet 09/21/16 Tiotropium [Spiriva] 18 mcg IH DAILY@0700 #2 inh 09/21/16 Allergies Allergy/AdvReac Type Severity Reaction Status Date / Time iodine Allergy See Verified 09/16/16 22:18 Comments tramadol Allergy Itching Verified 08/03/16 15:58 ketorolac [From Toradol] AdvReac Headache Verified 08/03/16 14:05 nalbuphine [From Nubain] AdvReac Vomiting Verified 08/03/16 14:05 All systems ED: reviewed and negative except as stated. Constitutional: Denies: fever Cardiovascular: Denies: chest pain Respiratory: Reports: cough, dyspnea. Denies: wheezes Gastrointestinal: Denies: abdominal pain, nausea, vomiting Musculoskeletal: Reports: neck pain. Denies: back pain Past Medical History - Past Medical History Attestation: Yes The following information was validated with the patient. Source: patient Medical history: Reports: CHF, COPD, osteoporosis Surgical history: Reports: breast surgery, Psychiatric history: Reports: no psych history - Social History Smoking Status: Current every day smoker Smokeless Tobacco Status: No Alcohol use: Reports: none Drug use: Reports: none Physical Exam - General Limitations: no limitations General appearance: alert, in no apparent distress - Head Head exam: atraumatic, normocephalic, normal inspection - Eye Eye exam: Present: normal appearance, EOMI - ENT ENT exam: normal exam - Neck Neck exam: Present: normal inspection - Chest Chest inspection: Present: normal inspection, symmetric chest wall rise - Respiratory Respiratory exam: Present: other ( Diminished breath Sounds bilaterally in the bases.). Absent: respiratory distress - Cardiovascular Cardiovascular exam: Present: normal rhythm, tachycardia, normal heart sounds - Abdominal Exam Abdominal exam: Present: soft, Non-Tender. Absent: tenderness - Expanded Upper Extremity Exam Shoulder exam: Present: normal inspection, full ROM Arm exam: Present: normal inspection, full ROM Elbow exam: Present: normal inspection, full ROM Forearm/Wrist exam: Present: normal inspection, full ROM Hand exam: Present: normal inspection, full ROM - Expanded Lower Extremity Exam Hip/Pelvis exam: Present: normal inspection, full ROM Upper leg exam: Present: normal inspection, full ROM Knee exam: Present: normal inspection, full ROM Lower leg exam: Present: normal inspection, full ROM Ankle exam: Present: normal inspection, full ROM Foot/toe exam: Present: normal inspection, full ROM - Neurological Exam Neurological exam: Present: alert - Psychiatric Psychiatric exam: Present: normal affect, normal mood - Skin Skin exam: Present: warm, dry, intact, normal color Course Course Narrative: Patient seen and examined. Vital signs reviewed. She is tachycardic here and did receive a DuoNeb in transit. Plan for patient's EKG, chest x-ray and labs. We will continue doing nebs and give her a dose of IV Solu-Medrol. - Reevaluation(s) Reevaluation #1: Discussed results of labs and imaging with the patient. Vital Signs Temperature 98.3 F 11/25/16 09:30 Pulse Rate 115 11/25/16 09:30 Respiratory Rate 24 11/25/16 09:30 Blood Pressure 185/95 11/25/16 09:30 O2 Sat by Pulse Oximetry 95 11/25/16 09:30 Temperature 98.3 F 11/25/16 09:30 Pulse Rate 116 11/25/16 11:08 Respiratory Rate 18 11/25/16 11:08 Blood Pressure 158/76 11/25/16 10:52 O2 Sat by Pulse Oximetry 94 L 11/25/16 11:08 Oxygen Delivery Oxygen Delivery Nasal Cannula Shortness of Breath/Dyspnea - MDM Narrative Medical decision making narrative: 51-year-old female presents to the ER due to shortness of breath. Long- standing history of COPD and oxygen dependency. She was 70% upon presentation by EMS. Here she is in the high 80s low 90s on 4 L nasal cannula. Chest x-ray shows no pneumonia. Treated with DuoNeb and Solu-Medrol here. Patient admitted for COPD exacerbation - Lab Data Lab results reviewed: Yes I reviewed the patient's lab results. Result diagrams: 11/25/16 09:50 11/25/16 09:50 Lab Results 11/25/16 11/25/16 11/25/16 Range/Units 09:50 09:50 09:50 WBC 8.7 (4.3-11.1) K/mcL RBC 3.76 L (3.82-4.97) M/mcL Hgb 10.9 L (11.5-15.4) g/dL Hct 35.6 (35.3-44.9) % MCV 94.7 (83.0-100.0) fL MCH 29.0 (28.0-33.3) pg MCHC 30.6 L (31.6-35.5) g/dL RDW 13.1 (11.5-14.5) % Plt Count 115 L (140-400) K/mcL MPV 9.6 (9.4-12.4) fL Immature Gran % 0.3 (0-4) % Seg Neutrophils % 80.5 % Lymphocytes % 11.2 % Monocytes % 7.9 % Eosinophils % 0.0 % Basophils % 0.1 % Neutrophils # 7.0 (1.6-8.9) K/mcL Lymphocytes # 1.0 (0.6-4.6) K/mcL Monocytes # 0.7 (0.0-1.3) K/mcL Eosinophils # 0.0 (0.0-0.6) K/mcL Basophils # 0.0 (0.0-0.2) K/mcL Sodium 138 (136-145) mEq/L Potassium 3.8 (3.5-4.5) mEq/L Chloride 102 (98-109) mEq/L Carbon Dioxide 27 (19-29) mEq/L BUN 14 (7-20) mg/dL Creatinine 0.97 (0.57-1.11) mg/dL Est GFR ( Amer) > 60 (> 60) Est GFR (Non-Af Amer) > 60 (> 60) BUN/Creatinine Ratio 14 (6-26) Glucose 127 H (70-99) mg/dL Calculated Osmolality 288 (280-300) Calcium 9.4 (8.6-10.8) mg/dL Troponin I 0.00 (0-0.03) ng/mL B-Natriuretic Peptide (0-100) pg/mL 11/25/16 Range/Units 09:50 WBC (4.3-11.1) K/mcL RBC (3.82-4.97) M/mcL Hgb (11.5-15.4) g/dL Hct (35.3-44.9) % MCV (83.0-100.0) fL MCH (28.0-33.3) pg MCHC (31.6-35.5) g/dL RDW (11.5-14.5) % Plt Count (140-400) K/mcL MPV (9.4-12.4) fL Immature Gran % (0-4) % Seg Neutrophils % % Lymphocytes % % Monocytes % % Eosinophils % % Basophils % % Neutrophils # (1.6-8.9) K/mcL Lymphocytes # (0.6-4.6) K/mcL Monocytes # (0.0-1.3) K/mcL Eosinophils # (0.0-0.6) K/mcL Basophils # (0.0-0.2) K/mcL Sodium (136-145) mEq/L Potassium (3.5-4.5) mEq/L Chloride (98-109) mEq/L Carbon Dioxide (19-29) mEq/L BUN (7-20) mg/dL Creatinine (0.57-1.11) mg/dL Est GFR ( Amer) (> 60) Est GFR (Non-Af Amer) (> 60) BUN/Creatinine Ratio (6-26) Glucose (70-99) mg/dL Calculated Osmolality (280-300) Calcium (8.6-10.8) mg/dL Troponin I (0-0.03) ng/mL B-Natriuretic Peptide 181 H (0-100) pg/mL - Radiology Data Radiology results reviewed: Yes I reviewed the patient's radiology results. Chest X-Ray 11/25/16 10:33 IMPRESSION: 1. No convincing evidence of acute cardiopulmonary abnormality. 2. Hyperinflation the lungs bilaterally with prominence of the interstitial markings most prominent the lung bases bilaterally. This may be related to COPD. 3. The osseous structures are osteopenic with chronic wedge deformity of a mid thoracic vertebra. D/ / Richard Bland MD / Richard Bland MD Interpreting Provider: Richard Bland MD - EKG Data EKG attestation: Yes I reviewed and interpreted this EKG. EKG results narrative: EKG demonstrates sinus tachycardia with rate of 113. Normal axis. OH interval 191 QRS duration [address] elevations or depressions. No acute ischemic findings. No significant changes from previous EKG dated 09/18/16. S.B.Juancho. - Dejuan.Nisha Situation: Demographics, MOA Background: Presenting Complaint, Relevant PMH, Meds, & Allergies Assessment: Vital Signs, Course and respsone to treatment, Exam Concerns, Patient/Family Expectation, Pertinant Lab Results, Outstanding Labs Recommendation: Barrier(s) to disposition, Recommendation based on pending studies, treatments, or consults S.B.AGil Report Given to: Dr. Luigi Rivera Repor Time: 11:21
[2016-11-25] MEDS ORDERED: Naloxone 0.4 MG/ML INJ IVP PRN (11:56)
[2016-11-25] MEDS ORDERED: Albuterol 2.5 MG/3 ML NEBULIZER IH PRN (11:58)
--- NOTE | 2016-11-25 13:45 | Internal Med History&Physical ---
Date of Encounter: 11/25/16 Time of Encounter: 13:36 Assessment and Plan (1) Acute on chronic respiratory failure with hypoxemia Current visit: Yes Status: Acute 1 patient has history of COPD is oxygen dependent. Has been expressing increasing shortness of breath and yesterday without any relief from breathing treatments she is on 2 L nasal cannula. Upon arrival EMS patient's SPO2 was in the 70s. She was given oxygen and DuoNeb transported to the ER she did slightly improve however did decompensate back down to the 80s. She was given breathing treatments and Solu-Medrol and SPO2 improved we will continue with oxygen at 4 L nasal cannula titrated to maintain SPO2 greater 92%. 2 continue with DuoNeb's/IV steroids to taper 3 encouraged patient to stop smoking (2) Acute exacerbation of chronic obstructive airways disease Current visit: No Status: Acute 1 . Continue with oxygen titrated to maintain SPO2 greater than 92% 2 DuoNeb nebs 3 steroid taper 4 encourage patient stop smoking (3) CHF (congestive heart failure) Current visit: No Status: Chronic 1. last echo 2015 unsure of EF Does not appear to be fluid overloaded will continue with home meds 2 monitor I/O 3 daily weights 4 low Na diet Qualifiers: Congestive heart failure type: diastolic Congestive heart failure chronicity: chronic Qualified Code(s): I50.32 - Chronic diastolic (congestive ) heart failure (4) Methadone maintenance therapy patient Current visit: No Status: Chronic 1 Hx of chronic pain and opiate abuse. Will continue with home dose of methadone and have patient follow up with her pain clinic (5) DVT prophylaxis Current visit: No Status: Acute 1 [facility] Internal Medicine - H&P: HPI Chief complaint: SOB Admitted From: Emergency Dept Plans for Post Hospital Care: Home History of present illness: Ms. Haley is a 51 year old female COPD oxygen dependent, CHF, current smoker. According to the patient she has been her usual state of health up until yesterday when she was experiencing fatigue increasing shortness of breath on exertion as well as a dry nonproductive cough. She denies any fevers chills chest/abdominal pain nausea and diarrhea. She does admit to vomiting and has had weeping food down. She is also had some sick contacts grandchildren with upper respiratory infection. She is on oxygen at 2 L nasal cannula and has been using breathing treatments with little relief. The symptoms continued until this morning the patient has been intubated in the past she has a fear of being reintubated and decided to be evaluated before respiratory status worsened. According to ER documentation upon arrival of EMS patient's oxygen saturation was in the 70s. She was placed on 4 L nasal cannula was given a DuoNeb's. Her oxygenation did improve up into the 90s, however on arrival to the ER oxygen saturation decreased back down to the 80s she again was given DuoNeb as well as IV steroids. Hypoxia improved chest x-ray was obtained and did not reveal any pneumonia lab work unremarkable with no elevation in white count. She was tachycardic at 115 on presentation and afebrile blood pressure 185/95. She was admitted for further workup and evaluation. Presently the patient denies any chest pain or shortness of breath she does complain of a dull headache in occipital region. She states that she did take her medications this a.m. however she did vomit her pills back up, this was confirmed by her daughter who is her tennis coach. At this time she does not appear to be any respiratory distress, upon auscultation , scattered rhonchi with expiratory wheezes are noted. She is hemodynamically stable on 4 L nasal cannula. I reviewed this case with Dr. talbert who agrees with this plan Past Med Surg Social Fam HX - Past Medical History Medical history: CHF, COPD, osteoporosis Psychiatric history: depression - Past Surgical History Surgical History: breast surgery, - Social History Smoking Status: Current every day smoker Packs per day: 1/2 Smokeless Tobacco Status: No Alcohol use: none Drug use: none - Family History Mother Hx Family Cardiac Disorders: Yes (chf) Internal Medicine - H&P: Meds Aclidinium [place] [Tudorza Pressair] 400 mcg IH BID 09/16/16 [History] Albuterol Sulfate [Proair Hfa] 1 puff IH Q4H PRN 09/16/16 [History] Fluticasone/Salmeterol [Advair 100-50 Diskus] 1 puff IH BID 09/16/16 [History] GuaiFENesin ER [Mucinex] 600 mg PO BID 09/16/16 [History] Lisinopril/Hydrochlorothiazide [Zestoretic 20-25 mg Tablet] 1 tab PO DAILY 09/16 [History] Methadone Oral Concentrate [Methadone] 65 mg PO DAILY 09/16/16 [History] Omeprazole [PriLOSEC] 20 mg PO DAILY 09/16/16 [History] Ropinirole HCl [Requip] 10 mg PO DAILY 09/16/16 [History] Amlodipine [Norvasc] 10 mg PO DAILY #30 tablet 09/21/16 [Rx] Tiotropium [Spiriva] 18 mcg IH DAILY 11/25/16 [History] Allergies iodine Allergy (Verified 09/16/16 22:18) See Comments PATIENT DOES NOT KNOW REACTION- LISTED ON [facility] LAST APPT tramadol Allergy (Verified 08/03/16 15:58) Itching ketorolac [From Toradol] Adverse Reaction (Verified 08/03/16 14:05) Headache nalbuphine [From Nubain] Adverse Reaction (Verified 08/03/16 14:05) Vomiting All Systems PM: A 10-system review of systems was performed and is negative for pertinent findings except as documented above in the HPI. - Constitutional Constitutional: fatigue - Cardiovascular Cardiovascular ROS IM: no chest pain, no diaphoresis, no dyspnea, no lightheadedness, no palpitations, no syncope - Respiratory Respiratory: cough, dyspnea on exertion - Gastrointestinal Gastrointestinal: no abdominal pain, no diarrhea, no hematemesis, no hematochezia, no melena, no nausea, no vomiting - Genitourinary Genitourinary: no change in urinary stream, no dysuria, no flank pain, no hematuria - Musculoskeletal Musculoskeletal ROS IM: no numbness, no tingling - Integumentary Integumentary IM: no rash, no unusual bruising - Neurological Neurological ROS: no confusion, no convulsions, no focal weakness, no numbness, no tingling, no tremor(s) - Hematologic/Lymphatic Hematologic/Lymphatic: no easy bruising - Constitutional Vitals: Temp Pulse Resp BP Pulse Ox 98.5 F 109 15 124/101 90 L 11/25/16 13:21 11/25/16 13:21 11/25/16 13:21 11/25/16 13:21 11/25/16 13:21 General appearance: Present: A&O X 3, underweight, answers questions appropriately - Head Head exam: Present: atraumatic, normocephalic - Eye Eye exam: Present: PERRL, conjuntiva pink, sclera anicteric Pupils: Present: PERRL - Respiratory Respiratory exam: Present: rhonchi, wheezes. Absent: accessory muscle use, rales Additional comments: Scattered coarse rhonchi with expiratory wheezes throughout lung canales - Cardiovascular Cardiovascular exam: Present: RRR, +S1, +S2. Absent: diastolic murmur, gallop, rubs, systolic murmur - GI/Abdominal GI/Abdominal exam: Present: normal bowel sounds, soft, no peritoneal signs. Absent: distended, tenderness - Extremities Exam Extremities exam: Present: warm, radial pulses palpable and symetrical. Absent : calf tenderness, cyanotic, pedal edema - Neurological Exam Neurological exam: Present: CN II-XII intact, oriented X3, no focal deficits. Absent: pronater drift, facial droop, speech deficit - Skin Skin exam: Present: dry, intact Internal Med - H&P Results - Labs CBC & Chem 7: 11/25/16 09:50 11/25/16 09:50 - EKG Data EKG comments: 11/25/16 13:50 Sinus rhythm with right bundle-branch block - Diagnostic Studies Other Images Additional comments: Chest X-Ray 11/25/16 10:33 IMPRESSION: 1. No convincing evidence of acute cardiopulmonary abnormality. 2. Hyperinflation the lungs bilaterally with prominence of the interstitial markings most prominent the lung bases bilaterally. This may be related to COPD. 3. The osseous structures are osteopenic with chronic wedge deformity of a mid thoracic vertebra. D/ / Richard Bland MD / Richard Bland MD Interpreting Provider: Richard Bland MD
[2016-11-25] MEDS: Ipratropium/Albuterol Neb 3 ML IH SCH (16:08)
[2016-11-25] MEDS: methylPREDNISolone 125 MG/2 ML VIAL IVP SCH (18:23)
[2016-11-25] MEDS: (Aclidinium Bromide [Tudorza Pressair] 400 MCG) IH SCH (22:23)
[2016-11-25] MEDS: Acetaminophen 325 MG TABLET PO PRN (22:23)
[2016-11-26] MEDS: Budesonide/Formoterol 160/4.5 MDI IH SCH ×3 (00:19→21:37)
[2016-11-26] MEDS: Ipratropium/Albuterol Neb 3 ML IH SCH ×5 (00:20→21:37)
[2016-11-26 05:50] LABS: Hematocrit 36.9 % (35.3-44.9); Hemoglobin 11.2 g/dL (11.5-15.4); Mean Corpuscular HGB Conc 30.4 g/dL (31.6-35.5); Mean Corpuscular Hemoglobin 29.2 pg (28.0-33.3); Mean Corpuscular Volume 96.3 fL (83.0-100.0); Mean Platelet Volume 10.3 fL (9.4-12.4); Platelet Count 128 K/mcL (140-400); Red Blood Count 3.83 M/mcL (3.82-4.97); Red Cell Distribution Width 13.1 % (11.5-14.5)
[2016-11-26 05:59] LABS: BUN/Creatinine Ratio 20 (6-26); Blood Urea Nitrogen 18 mg/dL (7-20); Calcium 9.4 mg/dL (8.6-10.8); Carbon Dioxide 27 mEq/L (19-29); Chloride 102 mEq/L (98-109); Glucose 99 mg/dL (70-99); Osmolality,Calculated 290 (280-300); Sodium 139 mEq/L (136-145); eGFR For African Americans > 60 (> 60); eGFR For Non-African Americans > 60 (> 60)
[2016-11-26] MEDS ORDERED: *HR* Enoxaparin 40 MG/0.4 ML SYRINGE SQ SCH (06:00)
[2016-11-26] MEDS: methylPREDNISolone 125 MG/2 ML VIAL IVP SCH ×2 (06:34→18:52)
[2016-11-26 07:27] LABS: Lymphocytes # 1.1 K/mcL (0.6-4.6); Monocytes # 0.4 K/mcL (0.0-1.3); Neutrophils # 7.6 K/mcL (1.6-8.9); Platelet Estimate Normal (Normal)
[2016-11-26] MEDS ORDERED: Tiotropium 18 MCG inhalation IH SCH (09:00)
[2016-11-26] MEDS ORDERED: ROPINIROLE PO SCH (09:00)
[2016-11-26] MEDS ORDERED: ROPINIROLE HCL 10 MG PO SCH (09:00)
[2016-11-26] MEDS ORDERED: Methadone Oral Concentrate 10 MG/ML PO SCH ×2 (09:00→13:28)
[2016-11-26] MEDS: amLODIPine 5 MG TABLET PO SCH (10:07)
[2016-11-26] MEDS: (Aclidinium Bromide [Tudorza Pressair] 400 MCG) IH SCH ×2 (11:54→23:11)
--- NOTE | 2016-11-26 17:03 | Internal Med Progress Note ---
Date of Encounter: 11/26/16 Time of Encounter: 10:00 - Assessment and plan (1) Acute on chronic respiratory failure with hypoxemia Current Visit: Yes Status: Acute Assessment and plan: Due to COPD exacerbation. We will continue treatment of underlying disease. (2) COPD exacerbation Current Visit: Yes Status: Acute Assessment and plan: We will continue steroids and bronchodilator. Supportive treatment with low rate oxygen. 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 Her past medical history is significant for CHF, COPD, current smoker, history of opioid abuse on maintenance dose of methadone. Patient was seen and examined. She said the shortness of breath has improved after treatment. Still need oxygen and still in mild respiratory distress. No fever. Mild nonproductive cough. Patient denies chest pain. We will continue steroid and bronchodilator. Patient to complain of neck pain, lidocaine patch ordered. - Constitutional Vitals: Temp Pulse Resp BP Pulse Ox 98.6 F 109 18 135/64 93 L 11/26/16 15:43 11/26/16 15:43 11/26/16 16:17 11/26/16 15:43 11/26/16 16:17 General appearance: Present: mild distress, A&O X 3, underweight, answers questions appropriately - Head Head exam: Present: atraumatic, normocephalic - Eye Eye exam: Present: PERRL, conjuntiva pink, sclera anicteric Pupils: Present: PERRL - Neck Neck exam general surgery: Present: supple, trachea midline. Absent: lymphadenopathy - Respiratory Respiratory exam: Present: CTAB, wheezes (Scattered wheezes bilaterally). Absent: accessory muscle use, rales, rhonchi - Cardiovascular Cardiovascular exam: Present: RRR, +S1, +S2. Absent: diastolic murmur, gallop, rubs, systolic murmur - GI/Abdominal GI/Abdominal exam: Present: normal bowel sounds, soft, no peritoneal signs. Absent: distended, tenderness - Extremities Exam Extremities exam: Present: warm, radial pulses palpable and symetrical. Absent : calf tenderness, cyanotic, pedal edema - Neurological Exam Neurological exam: Present: CN II-XII intact, oriented X3, no focal deficits. Absent: pronater drift, facial droop, speech deficit - Skin Skin exam: Present: dry, intact Internal Medicine: Result - Labs CBC & Chem 7: 11/26/16 05:25 11/26/16 05:25 Labs: Short CBC 11/26/16 Range/Units 05:25 WBC 9.0 (4.3-11.1) K/mcL Hgb 11.2 L (11.5-15.4) g/dL Hct 36.9 (35.3-44.9) % Plt Count 128 L (140-400) K/mcL Neutrophils # 7.6 (1.6-8.9) K/mcL BMP 11/26/16 05:25 Sodium 139 Potassium 4.0 Chloride 102 Carbon Dioxide 27 BUN 18 Creatinine 0.88 Glucose 99 Calcium 9.4 Consult Discharge Plan - Plan Referrals: Elizabeth Celeste DO [Primary Care Provider] -
--- NOTE | 2016-11-26 17:48 | Electrocardiograph Report ---
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
[2016-11-27] MEDS: Ipratropium/Albuterol Neb 3 ML IH SCH ×4 (04:11→22:33)
[2016-11-27] MEDS ORDERED: *HR* Enoxaparin 40 MG/0.4 ML SYRINGE SQ SCH (06:00)
[2016-11-27] MEDS: methylPREDNISolone 125 MG/2 ML VIAL IVP SCH ×2 (06:27→17:05)
[2016-11-27 07:00] LABS: Calcium 9.8 mg/dL (8.6-10.8); Potassium 3.8 mEq/L (3.5-4.5)
[2016-11-27 07:02] LABS: Hematocrit 37.6 % (35.3-44.9); Hemoglobin 11.2 g/dL (11.5-15.4); Mean Corpuscular HGB Conc 29.8 g/dL (31.6-35.5); Mean Corpuscular Hemoglobin 28.9 pg (28.0-33.3); Mean Corpuscular Volume 96.9 fL (83.0-100.0); Mean Platelet Volume 9.9 fL (9.4-12.4); Monocytes # 0.6 K/mcL (0.0-1.3); Platelet Count 149 K/mcL (140-400); Red Blood Count 3.88 M/mcL (3.82-4.97); Red Cell Distribution Width 13.2 % (11.5-14.5)
[2016-11-27] MEDS ORDERED: 0.9 % Sodium Chloride 1,000 ML IVC SCH (08:00)
[2016-11-27 09:09] LABS: Lymphocytes # 1.3 K/mcL (0.6-4.6); Neutrophils # 3.9 K/mcL (1.6-8.9); Platelet Estimate Normal (Normal)
[2016-11-27] MEDS: amLODIPine 5 MG TABLET PO SCH (09:29)
[2016-11-27] MEDS: (Aclidinium Bromide [Tudorza Pressair] 400 MCG) IH SCH (09:47)
[2016-11-27] MEDS: Budesonide/Formoterol 160/4.5 MDI IH SCH ×2 (10:19→22:33)
[2016-11-27] MEDS ORDERED: Furosemide 20 MG/2 ML VIAL IVP ONE ×2 (15:28→15:54)
[2016-11-27 16:05] LABS: ABG Base Excess 5.8 mEq/L (-2.0 to 3.0); ABG Oxygen Saturation 87 % (95-98); ABG PH 7.23 pH Units (7.32-7.45); ABG PO2 62 mmHg (85-104); ABG TCO2 38.6 mEq/L (20-26); Blood Gas FiO2 36 %; Blood Gas Liter Flow 4 L/MIN
[2016-11-27 16:07] LABS: ABG PCO2 86 mmHg (35-45)
--- NOTE | 2016-11-27 16:37 | Internal Med Progress Note ---
Date of Encounter: 11/27/16 Time of Encounter: 10:00 - Assessment and plan (1) Acute on chronic respiratory failure with hypoxemia Current Visit: Yes Status: Acute Assessment and plan: Due to COPD exacerbation. We will continue treatment of underlying disease. On BiPAP supportive. (2) COPD exacerbation Current Visit: Yes Status: Acute Assessment and plan: We will continue steroids and bronchodilator. Add Levaquin. Supportive treatment with BiPAP. 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 Her past medical history is significant for CHF, COPD, current smoker, history of opioid abuse on maintenance dose of methadone. Patient was seen and examined. Patient's condition is getting worse this afternoon, with increased tachycardia and increased oxygen demand to maintain oxygen saturation. ABG shows acute respiratory acidosis and CO2 retention. Patient was placed on BiPAP. Add Levaquin to control the possible infection. Continue closely monitoring. Patient had end stage COPD, prognosis is guarded. - Constitutional Vitals: Temp Pulse Resp BP Pulse Ox 99.3 F 125 16 170/80 90 L 11/27/16 16:12 11/27/16 15:26 11/27/16 16:07 11/27/16 16:07 11/27/16 16:07 General appearance: Present: A&O X 3, severe distress, underweight, answers questions appropriately - Head Head exam: Present: atraumatic, normocephalic - Eye Eye exam: Present: PERRL, conjuntiva pink, sclera anicteric Pupils: Present: PERRL - Neck Neck exam general surgery: Present: supple, trachea midline. Absent: lymphadenopathy - Respiratory Respiratory exam: Present: CTAB, wheezes (Scattered wheezes bilaterally). Absent: accessory muscle use, rales, rhonchi - Cardiovascular Cardiovascular exam: Present: RRR, +S1, +S2. Absent: diastolic murmur, gallop, rubs, systolic murmur - GI/Abdominal GI/Abdominal exam: Present: normal bowel sounds, soft, no peritoneal signs. Absent: distended, tenderness - Extremities Exam Extremities exam: Present: warm, radial pulses palpable and symetrical. Absent : calf tenderness, cyanotic, pedal edema - Neurological Exam Neurological exam: Present: CN II-XII intact, oriented X3, no focal deficits. Absent: pronater drift, facial droop, speech deficit - Skin Skin exam: Present: dry, intact Internal Medicine: Result - Labs CBC & Chem 7: 11/27/16 06:21 11/27/16 06:21 Labs: Short CBC 11/27/16 Range/Units 06:21 WBC 5.7 (4.3-11.1) K/mcL Hgb 11.2 L (11.5-15.4) g/dL Hct 37.6 (35.3-44.9) % Plt Count 149 (140-400) K/mcL Neutrophils # 3.9 (1.6-8.9) K/mcL BMP 11/27/16 06:21 Sodium 140 Potassium 3.8 Chloride 100 Carbon Dioxide 28 BUN 26 H Creatinine 1.16 H Glucose 110 H Calcium 9.8 - ABG Interpretation ABG results: ABG ABG pH 7.23 pH Units (7.32-7.45) L 11/27/16 15:54 ABG pCO2 86 mmHg (35-45) H* 11/27/16 15:54 ABG pO2 62 mmHg (85-104) L 11/27/16 15:54 ABG O2 Saturation 87 % (95-98) L 11/27/16 15:54 Consult Discharge Plan - Plan Referrals: Elizabeth Celeste DO [Primary Care Provider] -
[2016-11-27] MEDS ORDERED: Levofloxacin 500 MG/100 ML 500 MG/100 ML BAG IVPB ONE (17:00)
[2016-11-27] MEDS ORDERED: *HR* Morphine 2 MG/ML SYRINGE IVP PRN (18:42)
--- NOTE | 2016-11-27 18:54 | Event Note ---
Date of Encounter: 11/27/16 Time of Encounter: 18:15 Pt refuses BiPAP and request to sign DNRCC. Pt shows understanding of the meaning of DNRCC. Pt's daughter is at bed side and understands her mother's decision. Finally DNRCC form was signed, witnessed by nurse. Code order placed. Will consult palliative care for hospice arrangement.
[2016-11-27] MEDS: Acetaminophen 325 MG TABLET PO PRN (20:19)
[2016-11-28] MEDS: (Aclidinium Bromide [Tudorza Pressair] 400 MCG) IH SCH ×3 (04:06→21:04)
[2016-11-28] MEDS: Ipratropium/Albuterol Neb 3 ML IH SCH ×4 (05:05→22:47)
[2016-11-28] MEDS: methylPREDNISolone 125 MG/2 ML VIAL IVP SCH ×2 (06:17→18:09)
[2016-11-28] MEDS: Acetaminophen 325 MG TABLET PO PRN ×2 (06:17→20:52)
[2016-11-28] MEDS: *HR* Enoxaparin 30 MG/0.3 ML SYRINGE SQ SCH (06:17)
[2016-11-28 07:07] LABS: Hematocrit 36.5 % (35.3-44.9); Hemoglobin 11.2 g/dL (11.5-15.4); Mean Corpuscular HGB Conc 30.7 g/dL (31.6-35.5); Mean Corpuscular Hemoglobin 29.7 pg (28.0-33.3); Mean Corpuscular Volume 96.8 fL (83.0-100.0); Mean Platelet Volume 10.1 fL (9.4-12.4); Monocytes # 0.4 K/mcL (0.0-1.3); Platelet Count 145 K/mcL (140-400); Red Blood Count 3.77 M/mcL (3.82-4.97); Red Cell Distribution Width 13.2 % (11.5-14.5)
[2016-11-28 07:10] LABS: Calcium 10.7 mg/dL (8.6-10.8); Magnesium 2.1 mg/dL (1.6-2.6); Potassium 3.3 mEq/L (3.5-4.5)
[2016-11-28 08:03] LABS: Lymphocytes # 0.8 K/mcL (0.6-4.6); Neutrophils # 4.8 K/mcL (1.6-8.9); Platelet Estimate Normal (Normal)
[2016-11-28] MEDS: Budesonide/Formoterol 160/4.5 MDI IH SCH ×2 (09:54→22:47)
[2016-11-28] MEDS: amLODIPine 5 MG TABLET PO SCH (10:33)
--- NOTE | 2016-11-28 12:27 | Internal Med Progress Note ---
Date of Encounter: 11/28/16 Time of Encounter: 10:00 - Assessment and plan (1) Acute on chronic respiratory failure with hypoxemia Current Visit: Yes Status: Acute Assessment and plan: Due to COPD exacerbation. We will continue treatment of underlying disease. Patient did refuse BiPAP. (2) COPD exacerbation Current Visit: Yes Status: Acute Assessment and plan: We will continue steroids and bronchodilator. Add Levaquin. Patient refused BiPAP. 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 Her past medical history is significant for CHF, COPD, current smoker, history of opioid abuse on maintenance dose of methadone. Patient was seen and examined. Patient's condition is getting better this morning. Still tachycardia, less O2 demend. We will continue antibiotic, steroid, and the bronchodilator. Continue closely monitoring. Patient had end stage COPD, prognosis is guarded. Discussed again with patient regarding treatment goal. Patient clearly told me she does not want CPR, or intubation, or BiPAP. She still wants antibiotics and medical treatment. Will change patient's CODE STATUS to DNR/DNI based on patient's will. Palliative care consult for further treatment goal determination. - Constitutional Vitals: Temp Pulse Resp BP Pulse Ox 97.5 F L 114 15 138/81 94 L 11/28/16 07:00 11/28/16 11:00 11/28/16 11:00 11/28/16 11:00 11/28/16 11:00 General appearance: Present: A&O X 3, severe distress, underweight, answers questions appropriately - Head Head exam: Present: atraumatic, normocephalic - Eye Eye exam: Present: PERRL, conjuntiva pink, sclera anicteric Pupils: Present: PERRL - Neck Neck exam general surgery: Present: supple, trachea midline. Absent: lymphadenopathy - Respiratory Respiratory exam: Present: CTAB. Absent: accessory muscle use, rales, rhonchi, wheezes - Cardiovascular Cardiovascular exam: Present: RRR, +S1, +S2, tachycardia. Absent: diastolic murmur, gallop, rubs, systolic murmur - GI/Abdominal GI/Abdominal exam: Present: normal bowel sounds, soft, no peritoneal signs. Absent: distended, tenderness - Extremities Exam Extremities exam: Present: warm, radial pulses palpable and symetrical. Absent : calf tenderness, cyanotic, pedal edema - Neurological Exam Neurological exam: Present: CN II-XII intact, oriented X3, no focal deficits. Absent: pronater drift, facial droop, speech deficit - Skin Skin exam: Present: dry, intact Internal Medicine: Result - Labs CBC & Chem 7: 11/28/16 06:16 11/28/16 06:16 Labs: Short CBC 11/28/16 Range/Units 06:16 WBC 6.0 (4.3-11.1) K/mcL Hgb 11.2 L (11.5-15.4) g/dL Hct 36.5 (35.3-44.9) % Plt Count 145 (140-400) K/mcL Neutrophils # 4.8 (1.6-8.9) K/mcL BMP 11/28/16 06:16 Sodium 139 Potassium 3.3 L Chloride 96 L Carbon Dioxide 32 H BUN 33 H Creatinine 1.31 H Glucose 132 H Calcium 10.7 - ABG Interpretation ABG results: ABG ABG pH 7.23 pH Units (7.32-7.45) L 11/27/16 15:54 ABG pCO2 86 mmHg (35-45) H* 11/27/16 15:54 ABG pO2 62 mmHg (85-104) L 11/27/16 15:54 ABG O2 Saturation 87 % (95-98) L 11/27/16 15:54 Consult Discharge Plan - Plan Referrals: Elizabeth Celeste DO [Primary Care Provider] -
[2016-11-28] MEDS ORDERED: *HR* Morphine 2 MG/ML SYRINGE IVP PRN (14:09)
--- NOTE | 2016-11-28 16:30 | Palliative - Consult Note ---
Date of Encounter: 11/28/16 Time of Encounter: 16:25 - Assessment and Plan (1) Goals of care, counseling/discussion Current Visit: Yes Status: Acute Assessment and plan: Plan for family meeting when family available. (2) Dyspnea Current Visit: Yes Status: Acute Assessment and plan: Supportive treatment, supplemental O2, position for comfort, BiPAP as tolerated Qualifiers: Dyspnea type: shortness of breath Qualified Code(s): R06.02 - Shortness of breath (3) Acute on chronic respiratory failure with hypoxemia Current Visit: Yes Status: Acute Assessment and plan: Management per hospitalist (4) Acute exacerbation of chronic obstructive airways disease Current Visit: No Status: Acute Assessment and plan: Management per hospitalist (5) Malnutrition Current Visit: No Status: Chronic Assessment and plan: Encourage meal by preference, high protein, dietitian following, Ensure Plus twice a day Palliative-CN HPI - Data of Consult Patient: new to practice Consult date: 11/28/16 Requesting Physician: Lynda Lauren MD Primary Care Provider: Elizabeth Celeste DO - Consult Narrative Palliative Care/Comfort Measures: Palliative care Reason for consult: Goals of care History of present illness: Ms. Haley is a 51 year old female admitted to [facility] with acute on chronic respiratory failure. Ms. Haley reported a one day history of worsening shortness of breath. She opted to get evaluated given her frail respiratory status. She was admitted, and treatment was initiated for acute on chronic respiratory failure with hypoxia, and exacerbation of COPD. She was treated with steroids, bronchodilators, antibiotics, BiPAP. Despite medical treatment, on 11/27/2016, the patient's respiratory status began to decompensate. She repeatedly declined more aggressive interventions such as endotracheal intubation. Ms. Haley was treated with supportive care and transition to DO NOT RESUSCITATE status. After conservative measures, the patient did appear to stabilize. The palliative care team was consulted to assist with goals of care planning. Upon initial evaluation, the patient is unable to participate in conversation. She is difficult to arouse. Once she is awake, she is very anxious and unable to participate in history taking. She did request that we contact her daughter to assist with history and goals of care planning. CC: Lynda Lauren MD Past Med Surg Social Fam HX - Past Medical History Source: old records reviewed Medical history: CHF, COPD, osteoporosis Psychiatric history: depression - Past Surgical History Surgical History: breast surgery, - Social History Smoking Status: Current every day smoker Packs per day: 1/2 Smokeless Tobacco Status: No Alcohol use: none Drug use: none - Family History Mother Hx Family Cardiac Disorders: Yes (chf) Medications and Allergies Aclidinium [place] [Tudorza Pressair] 400 mcg IH BID 09/16/16 [History] Albuterol Sulfate [Proair Hfa] 1 puff IH Q4H PRN 09/16/16 [History] Fluticasone/Salmeterol [Advair 100-50 Diskus] 1 puff IH BID 09/16/16 [History] GuaiFENesin ER [Mucinex] 600 mg PO BID 09/16/16 [History] Lisinopril/Hydrochlorothiazide [Zestoretic 20-25 mg Tablet] 1 tab PO DAILY 09/16 [History] Methadone Oral Concentrate [Methadone] 65 mg PO DAILY 09/16/16 [History] Omeprazole [PriLOSEC] 20 mg PO DAILY 09/16/16 [History] Ropinirole HCl [Requip] 10 mg PO DAILY 09/16/16 [History] Amlodipine [Norvasc] 10 mg PO DAILY #30 tablet 09/21/16 [Rx] Tiotropium [Spiriva] 18 mcg IH DAILY 11/25/16 [History] Allergies iodine Allergy (Verified 09/16/16 22:18) See Comments PATIENT DOES NOT KNOW REACTION- LISTED ON [facility] LAST APPT tramadol Allergy (Verified 08/03/16 15:58) Itching ketorolac [From Toradol] Adverse Reaction (Verified 08/03/16 14:05) Headache nalbuphine [From Nubain] Adverse Reaction (Verified 08/03/16 14:05) Vomiting ROS unobtainable: due to mental status Palliative Care-Exam - Constitutional Vitals: Temp Pulse Resp BP Pulse Ox 98.5 F 114 16 127/77 85 L 11/28/16 16:00 11/28/16 16:00 11/28/16 16:00 11/28/16 16:00 11/28/16 16:00 Exam: 51-year-old female patient appearing much older than stated age, cachectic, unable to participate in conversation, speech and communication fractured. - Head Head Exam: Present: atraumatic - Eye Eye exam: Present: EOMI, PERRL - ENT ENT exam: Present: mucous membranes dry - Respiratory Respiratory exam: Present: decreased breath sounds, prolonged expiratory phase, wheezes. Absent: accessory muscle use - Cardiovascular Cardiovascular exam: Present: RRR, tachycardia - GI/Abdominal Exam GI/Abdominal exam: Absent: tenderness additional comments: Abdomen scaphoid - Extremities Exam Extremities exam: Absent: tenderness - Neurological Exam Neurological exam: Present: alert (Altered mental status, unable to actively participate in conversation), strengths equal and symetr throughout - Psychiatric Psychiatric exam: Present: agitated, anxious - Skin Skin exam: Present: dry, warm Internal Medicine - CN: Reslt - Labs CBC & Chem 7: 11/28/16 06:16 11/28/16 06:16 Labs: Short CBC 11/28/16 Range/Units 06:16 WBC 6.0 (4.3-11.1) K/mcL Hgb 11.2 L (11.5-15.4) g/dL Hct 36.5 (35.3-44.9) % Plt Count 145 (140-400) K/mcL Neutrophils # 4.8 (1.6-8.9) K/mcL BMP 11/28/16 06:16 Sodium 139 Potassium 3.3 L Chloride 96 L Carbon Dioxide 32 H BUN 33 H Creatinine 1.31 H Glucose 132 H Calcium 10.7 - ABG Interpretation ABG results: ABG ABG pH 7.23 pH Units (7.32-7.45) L 11/27/16 15:54 ABG pCO2 86 mmHg (35-45) H* 11/27/16 15:54 ABG pO2 62 mmHg (85-104) L 11/27/16 15:54 ABG O2 Saturation 87 % (95-98) L 11/27/16 15:54 Consult Discharge Plan - Plan Referrals: Elizabeth Celeset DO [Primary Care Provider] - Palliative Quality Palliative Quality: Screen for Code Status: Yes, Screen for Goals of Care: NA ( Family meeting pending), Screen for Pain: Yes (On chronic methadone), If Pain Regimen Started, Initiate Bowel Regimen: NA, Screen for Nausea/Vomitting: Yes Code Status: 11/27/16 18:45 CODE [Resuscitation Status: Active] [RES] Routine Comment: Resuscitation Status: DNR-Comfort Care 11/28/16 10:27 CODE [Resuscitation Status: Active] [RES] Routine Comment: Resuscitation Status: [id number]
[2016-11-28] MEDS: Levofloxacin 250 MG/50 ML 250 MG/50 ML BAG IVPB SCH (18:09)
[2016-11-29] MEDS: Ipratropium/Albuterol Neb 3 ML IH SCH ×4 (04:56→22:09)
[2016-11-29 05:40] LABS: Basophils % 0.3 %; Hematocrit 37.9 % (35.3-44.9); Hemoglobin 11.5 g/dL (11.5-15.4); Immature Granulocytes % 1.2 % (0-4); Lymphocytes # 1.7 K/mcL (0.6-4.6); Lymphocytes % 25.7 %; Mean Corpuscular HGB Conc 30.3 g/dL (31.6-35.5); Mean Corpuscular Hemoglobin 29.4 pg (28.0-33.3); Mean Corpuscular Volume 96.9 fL (83.0-100.0); Mean Platelet Volume 9.6 fL (9.4-12.4); Monocytes # 0.3 K/mcL (0.0-1.3); Neutrophils # 4.4 K/mcL (1.6-8.9); Platelet Count 171 K/mcL (140-400); Red Blood Count 3.91 M/mcL (3.82-4.97); Red Cell Distribution Width 13.2 % (11.5-14.5); Segmented Neutrophils % 67.8 %
[2016-11-29 05:57] LABS: Calcium 11.4 mg/dL (8.6-10.8); Potassium 3.3 mEq/L (3.5-4.5)
[2016-11-29 06:20] LABS: Platelet Estimate Normal (Normal)
[2016-11-29] MEDS: methylPREDNISolone 125 MG/2 ML VIAL IVP SCH ×2 (06:50→17:17)
[2016-11-29] MEDS: *HR* Enoxaparin 30 MG/0.3 ML SYRINGE SQ SCH (06:51)
[2016-11-29] MEDS: Acetaminophen 325 MG TABLET PO PRN (06:59)
[2016-11-29] MEDS: amLODIPine 5 MG TABLET PO SCH (09:34)
[2016-11-29] MEDS: (Aclidinium Bromide [Tudorza Pressair] 400 MCG) IH SCH ×2 (09:36→22:45)
[2016-11-29] MEDS: Budesonide/Formoterol 160/4.5 MDI IH SCH ×2 (10:18→22:09)
--- NOTE | 2016-11-29 10:50 | Palliative Progress Note ---
Date of Encounter: 11/29/16 Time of Encounter: 10:30 - Assessment and plan (1) Dyspnea Current Visit: Yes Status: Acute Assessment and plan: Continues on supportive oxygen, Nebs, Symbicort, Solumedrol. Will follow. Qualifiers: Dyspnea type: shortness of breath Qualified Code(s): R06.02 - Shortness of breath (2) Goals of care, counseling/discussion Current Visit: Yes Status: Acute Assessment and plan: Family to come today at 1300 for meeting (3) COPD exacerbation Current Visit: Yes Status: Acute (4) Acute on chronic respiratory failure with hypoxemia Current Visit: Yes Status: Acute (5) History of drug abuse Current Visit: No Status: Acute - Time Spent With Patient Total time spent is greater than 50% in coordination of care (as documented) at patient's floor/unit and/or counseling patient: 25 - 35 minutes - Subjective Interval history: Patient drowsy - sitting up leaning forward in bed. Awakens and answers few "yes/no" questions but falls back to sleep and cannot carry on conversation. No family at bedside. - Constitutional Vitals: Abnormal lab results MCHC 30.3 g/dL (31.6-35.5) L 11/29/16 05:26 Band Neutrophils % 18.0 % (0-4) H 11/28/16 06:16 ABG pH 7.23 pH Units (7.32-7.45) L 11/27/16 15:54 ABG pCO2 86 mmHg (35-45) H* 11/27/16 15:54 ABG pO2 62 mmHg (85-104) L 11/27/16 15:54 ABG HCO3 36.0 mEQ/L (21-27) H 11/27/16 15:54 ABG Total CO2 38.6 mEq/L (20-26) H 11/27/16 15:54 ABG O2 Saturation 87 % (95-98) L 11/27/16 15:54 ABG Base Excess 5.8 mEq/L (-2.0 to 3.0) H 11/27/16 15:54 Potassium 3.3 mEq/L (3.5-4.5) L 11/29/16 05:26 Chloride 94 mEq/L (98-109) L 11/29/16 05:26 Carbon Dioxide 33 mEq/L (19-29) H 11/29/16 05:26 BUN 50 mg/dL (7-20) H D 11/29/16 05:26 Creatinine 1.67 mg/dL (0.57-1.11) H 11/29/16 05:26 Est GFR ( Amer) 39 (> 60) L 11/29/16 05:26 Est GFR (Non-Af Amer) 32 (> 60) L 11/29/16 05:26 BUN/Creatinine Ratio 30 (6-26) H 11/29/16 05:26 Glucose 102 mg/dL (70-99) H 11/29/16 05:26 Calcium 11.4 mg/dL (8.6-10.8) H 11/29/16 05:26 B-Natriuretic Peptide 181 pg/mL (0-100) H 11/25/16 09:50 General appearance: Present: no acute distress - Respiratory Additional comments: Course crackles bilateral lower lobes - Cardiovascular Cardiovascular exam: Present: +S1, +S2 - GI/Abdominal GI/Abdominal exam: Present: soft - Extremities Exam Extremities exam: Present: normal capillary refill, normal inspection - Neurological Exam Additional comments: Very drowsy - awakens but unable to stay awake for conversation or follow commands - Skin Skin exam: Present: dry, pallor, warm Palliative Quality Palliative Quality: Screen for Code Status: Yes, Screen for Goals of Care: NA ( Family meeting pending), Screen for Pain: Yes (On chronic methadone), If Pain Regimen Started, Initiate Bowel Regimen: NA, Screen for Nausea/Vomitting: Yes Code Status: 11/27/16 18:45 CODE [Resuscitation Status: Active] [RES] Routine Comment: Resuscitation Status: DNR-Comfort Care 11/28/16 10:27 CODE [Resuscitation Status: Active] [RES] Routine Comment: Resuscitation Status: [id number] - Labs CBC & Chem 7: 11/29/16 05:26 11/29/16 05:26 Labs: Laboratory Results - last 24 hr 11/29/16 11/29/16 05:26 05:26 WBC 6.5 RBC 3.91 Hgb 11.5 Hct 37.9 MCV 96.9 MCH 29.4 MCHC 30.3 L RDW 13.2 Plt Count 171 MPV 9.6 Immature Gran % 1.2 Seg Neutrophils % 67.8 Lymphocytes % 25.7 Monocytes % 5.0 Eosinophils % 0.0 Basophils % 0.3 Neutrophils # 4.4 Lymphocytes # 1.7 Monocytes # 0.3 Eosinophils # 0.0 Basophils # 0.0 Platelet Estimate Normal Sodium 137 Potassium 3.3 L Chloride 94 L Carbon Dioxide 33 H BUN 50 H D Creatinine 1.67 H Est GFR ( Amer) 39 L Est GFR (Non-Af Amer) 32 L BUN/Creatinine Ratio 30 H Glucose 102 H Calculated Osmolality 298 Calcium 11.4 H - ABG Interpretation ABG results: ABG ABG pH 7.23 pH Units (7.32-7.45) L 11/27/16 15:54 ABG pCO2 86 mmHg (35-45) H* 11/27/16 15:54 ABG pO2 62 mmHg (85-104) L 11/27/16 15:54 ABG O2 Saturation 87 % (95-98) L 11/27/16 15:54 Consult Discharge Plan - Plan Referrals: Elizabeth Celeste DO [Primary Care Provider] -
[2016-11-29] MEDS: Levofloxacin 250 MG/50 ML 250 MG/50 ML BAG IVPB SCH (17:17)
--- NOTE | 2016-11-29 18:07 | Internal Med Progress Note ---
Date of Encounter: 11/29/16 Time of Encounter: 10:00 - Assessment and plan (1) Acute on chronic respiratory failure with hypoxemia Current Visit: Yes Status: Acute Assessment and plan: Due to COPD exacerbation. We will continue treatment of underlying disease. Patient did refuse BiPAP or intubation. (2) COPD exacerbation Current Visit: Yes Status: Acute Assessment and plan: We will continue steroids and bronchodilator. Add Levaquin. Patient refused BiPAP. 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 We will give her low rate IV fluid. Follow up her renal function - Time Spent With Patient 25 - 35 minutes - Subjective Interval history: Patient is a 51-year-old female admitted for COPD exacerbation. Her past medical history is significant for CHF, COPD, current smoker, history of opioid abuse on maintenance dose of methadone. Patient was seen and examined. Patient still has SOB and desaturation. Still tachycardia. We will continue antibiotic, steroid, and the bronchodilator. Continue closely monitoring. Patient had end stage COPD, prognosis is guarded. Palliative care is on case, further goal of care will discuss with pt and family. - Constitutional Vitals: Temp Pulse Resp BP Pulse Ox 98.6 F 107 12 143/87 92 L 11/29/16 15:33 11/29/16 15:33 11/29/16 16:32 11/29/16 15:33 11/29/16 16:32 General appearance: Present: A&O X 3, severe distress, underweight, answers questions appropriately - Head Head exam: Present: atraumatic, normocephalic - Eye Eye exam: Present: PERRL, conjuntiva pink, sclera anicteric Pupils: Present: PERRL - Neck Neck exam general surgery: Present: supple, trachea midline. Absent: lymphadenopathy - Respiratory Respiratory exam: Present: decreased breath sounds (B/L), CTAB. Absent: accessory muscle use, rales, rhonchi, wheezes - Cardiovascular Cardiovascular exam: Present: RRR, +S1, +S2. Absent: diastolic murmur, gallop, rubs, systolic murmur - GI/Abdominal GI/Abdominal exam: Present: normal bowel sounds, soft, no peritoneal signs. Absent: distended, tenderness - Extremities Exam Extremities exam: Present: warm, radial pulses palpable and symetrical. Absent : calf tenderness, cyanotic, pedal edema - Neurological Exam Neurological exam: Present: CN II-XII intact, oriented X3, no focal deficits. Absent: pronater drift, facial droop, speech deficit - Skin Skin exam: Present: dry, intact Internal Medicine: Result - Labs CBC & Chem 7: 11/29/16 05:26 11/29/16 05:26 Labs: Short CBC 11/29/16 Range/Units 05:26 WBC 6.5 (4.3-11.1) K/mcL Hgb 11.5 (11.5-15.4) g/dL Hct 37.9 (35.3-44.9) % Plt Count 171 (140-400) K/mcL Neutrophils # 4.4 (1.6-8.9) K/mcL BMP 11/29/16 05:26 Sodium 137 Potassium 3.3 L Chloride 94 L Carbon Dioxide 33 H BUN 50 H D Creatinine 1.67 H Glucose 102 H Calcium 11.4 H - ABG Interpretation ABG results: ABG ABG pH 7.23 pH Units (7.32-7.45) L 11/27/16 15:54 ABG pCO2 86 mmHg (35-45) H* 11/27/16 15:54 ABG pO2 62 mmHg (85-104) L 11/27/16 15:54 ABG O2 Saturation 87 % (95-98) L 11/27/16 15:54 Consult Discharge Plan - Plan Referrals: Elizabeth Celeste DO [Primary Care Provider] - Yfn Merrill DO [Partnered Physician] - 12/21/16 1:30 pm
[2016-11-29] MEDS ORDERED: 0.9 % Sodium Chloride 1,000 ML IVC SCH (18:15)
[2016-11-30] MEDS: Ipratropium/Albuterol Neb 3 ML IH SCH ×3 (04:35→16:42)
[2016-11-30] MEDS: *HR* Enoxaparin 30 MG/0.3 ML SYRINGE SQ SCH (05:29)
[2016-11-30] MEDS: methylPREDNISolone 125 MG/2 ML VIAL IVP SCH (05:31)
[2016-11-30 06:42] LABS: Basophils % 0.4 %; Hematocrit 36.8 % (35.3-44.9); Hemoglobin 10.8 g/dL (11.5-15.4); Immature Granulocytes % 1.9 % (0-4); Lymphocytes # 1.4 K/mcL (0.6-4.6); Lymphocytes % 29.8 %; Mean Corpuscular HGB Conc 29.3 g/dL (31.6-35.5); Mean Corpuscular Hemoglobin 28.3 pg (28.0-33.3); Mean Corpuscular Volume 96.6 fL (83.0-100.0); Mean Platelet Volume 9.5 fL (9.4-12.4); Monocytes # 0.3 K/mcL (0.0-1.3); Monocytes % 5.7 %; Platelet Count 161 K/mcL (140-400); Red Blood Count 3.81 M/mcL (3.82-4.97); Red Cell Distribution Width 13.1 % (11.5-14.5); Segmented Neutrophils % 62.2 %
[2016-11-30 07:00] LABS: Calcium 10.4 mg/dL (8.6-10.8); Potassium 3.2 mEq/L (3.5-4.5)
[2016-11-30 07:16] VITALS: BP 115/71
[2016-11-30 08:20] LABS: Platelet Estimate Normal (Normal); Reactive Lymphocytes Present (Not Present)
--- NOTE | 2016-11-30 09:56 | Event Note ---
Date of Encounter: 11/30/16 Time of Encounter: 09:54 Hospice medical asst certification of terminal illness: Hospice benefit. Start: 11/30/2016 Hospice benefit. In: +90 days Palliative performance scale: 30-40% History: The patient has a history of chronic COPD with acute on chronic hypercapnic hypoxemic respiratory failure with PCO2's in excess of 80, and low oxygen despite the use of supplemental oxygen. The patient also has a history of chronic drug addiction for which she is maintained in a methadone program. The patient wishes to have no further aggressive care, and she is visibly short of breath even at rest at times. Given her high PCO2, and her decline in functional status I find that These findings support a life expectancy of 6 months or less. I attest that I have compose the above narrative based on my review of the patient's medical records, and or on my examination of the patient. Bubba Mi M.D. Associate medical library assistant. [facility]
--- NOTE | 2016-11-30 10:03 | Palliative Progress Note ---
Date of Encounter: 11/30/16 Time of Encounter: 10:00 - Assessment and plan (1) Dyspnea Current Visit: Yes Status: Acute Assessment and plan: Continue steroids/nebs/supportive oxygen. Will give script for Roxanol for dyspnea Qualifiers: Dyspnea type: shortness of breath Qualified Code(s): R06.02 - Shortness of breath (2) Goals of care, counseling/discussion Current Visit: Yes Status: Acute Assessment and plan: D/C home with [facility] with ok with hospitalist. D/W Dr. Franco. Referral called to [facility]. She needs no additional DME setup. Dr. Mi stated Hospice would follow and prescribe Methadone. Patient family states they just had this filled Tues prior to admission and do not need at this time. Scripts for comfort meds for end of life completed (Roxanol, Ativan , Atropine) (3) COPD exacerbation Current Visit: Yes Status: Acute (4) Acute on chronic respiratory failure with hypoxemia Current Visit: Yes Status: Acute (5) History of drug abuse Current Visit: No Status: Acute - Time Spent With Patient Total time spent is greater than 50% in coordination of care (as documented) at patient's floor/unit and/or counseling patient: 25 - 35 minutes - Subjective Interval history: Patient up on side of bed in middle of bath. Denies discomfort. States breathing better. Remains unsteady and drowsy. NO family present - Constitutional Vitals: Abnormal lab results RBC 3.81 M/mcL (3.82-4.97) L 11/30/16 05:30 Hgb 10.8 g/dL (11.5-15.4) L 11/30/16 05:30 MCHC 29.3 g/dL (31.6-35.5) L 11/30/16 05:30 Band Neutrophils % 18.0 % (0-4) H 11/28/16 06:16 Reactive Lymphocytes Present (Not Present) A 11/30/16 05:30 ABG pH 7.23 pH Units (7.32-7.45) L 11/27/16 15:54 ABG pCO2 86 mmHg (35-45) H* 11/27/16 15:54 ABG pO2 62 mmHg (85-104) L 11/27/16 15:54 ABG HCO3 36.0 mEQ/L (21-27) H 11/27/16 15:54 ABG Total CO2 38.6 mEq/L (20-26) H 11/27/16 15:54 ABG O2 Saturation 87 % (95-98) L 11/27/16 15:54 ABG Base Excess 5.8 mEq/L (-2.0 to 3.0) H 11/27/16 15:54 Potassium 3.2 mEq/L (3.5-4.5) L 11/30/16 05:30 Chloride 96 mEq/L (98-109) L 11/30/16 05:30 Carbon Dioxide 33 mEq/L (19-29) H 11/30/16 05:30 BUN 56 mg/dL (7-20) H 11/30/16 05:30 Creatinine 1.55 mg/dL (0.57-1.11) H 11/30/16 05:30 Est GFR ( Amer) 42 (> 60) L 11/30/16 05:30 Est GFR (Non-Af Amer) 35 (> 60) L 11/30/16 05:30 BUN/Creatinine Ratio 36 (6-26) H 11/30/16 05:30 Glucose 122 mg/dL (70-99) H 11/30/16 05:30 Calculated Osmolality 307 (280-300) H 11/30/16 05:30 B-Natriuretic Peptide 181 pg/mL (0-100) H 11/25/16 09:50 General appearance: Present: no acute distress - Expanded Respiratory Exam Location: rales: Left, Right, Lower - Cardiovascular Cardiovascular exam: Present: +S1, +S2 - GI/Abdominal GI/Abdominal exam: Present: normal bowel sounds, soft - Extremities Exam Extremities exam: Present: normal capillary refill, normal inspection - Neurological Exam Neurological exam: Present: alert Additional comments: Oriented to name and place. - Skin Skin exam: Present: dry, pallor, warm Palliative Quality Palliative Quality: Screen for Code Status: Yes, Screen for Goals of Care: NA ( Family meeting pending), Screen for Pain: Yes (On chronic methadone), If Pain Regimen Started, Initiate Bowel Regimen: NA, Screen for Nausea/Vomitting: Yes Code Status: 11/27/16 18:45 CODE [Resuscitation Status: Active] [RES] Routine Comment: Resuscitation Status: DNR-Comfort Care 11/28/16 10:27 CODE [Resuscitation Status: Active] [RES] Routine Comment: Resuscitation Status: [id number] - Labs CBC & Chem 7: 11/30/16 05:30 11/30/16 05:30 Labs: Laboratory Results - last 24 hr 11/30/16 11/30/16 05:30 05:30 WBC 4.8 RBC 3.81 L Hgb 10.8 L Hct 36.8 MCV 96.6 MCH 28.3 MCHC 29.3 L RDW 13.1 Plt Count 161 MPV 9.5 Immature Gran % 1.9 Seg Neutrophils % 62.2 Lymphocytes % 29.8 Monocytes % 5.7 Eosinophils % 0.0 Basophils % 0.4 Neutrophils # 3.0 Lymphocytes # 1.4 Monocytes # 0.3 Eosinophils # 0.0 Basophils # 0.0 Reactive Lymphocytes Present A Platelet Estimate Normal Sodium 140 Potassium 3.2 L Chloride 96 L Carbon Dioxide 33 H BUN 56 H Creatinine 1.55 H Est GFR ( Amer) 42 L Est GFR (Non-Af Amer) 35 L BUN/Creatinine Ratio 36 H Glucose 122 H Calculated Osmolality 307 H Calcium 10.4 - ABG Interpretation ABG results: ABG ABG pH 7.23 pH Units (7.32-7.45) L 11/27/16 15:54 ABG pCO2 86 mmHg (35-45) H* 11/27/16 15:54 ABG pO2 62 mmHg (85-104) L 11/27/16 15:54 ABG O2 Saturation 87 % (95-98) L 11/27/16 15:54 Consult Discharge Plan - Plan Referrals: Elizabeth Celeste DO [Primary Care Provider] - Yfn Merrill DO [Partnered Physician] - 12/21/16 1:30 pm
[2016-11-30] MEDS: (Aclidinium Bromide [Tudorza Pressair] 400 MCG) IH SCH (10:39)
[2016-11-30] MEDS: amLODIPine 5 MG TABLET PO SCH (10:49)
--- NOTE | 2016-11-30 10:54 | Discharge Summary ---
Date of Encounter: 11/30/16 Time of Encounter: 10:51 - Discharge Diagnosis (1) Acute on chronic respiratory failure with hypoxemia Priority: Primary Status: Acute Comments: Acute on chronic hypoxic and hypercapnic respiratory failure secondary to acute COPD exacerbation due to acute bronchitis viral versus bacterial (2) COPD exacerbation Priority: Primary Status: Acute (3) Acute bronchitis Priority: Primary Status: Acute Qualifiers: Bronchitis organism: unspecified organism Qualified Code(s): J20.9 - Acute bronchitis, unspecified (4) History of drug abuse Priority: Secondary Status: Acute (5) Malnutrition Priority: Secondary Status: Chronic Comments: Severe protein calorie malnutrition (6) Methadone maintenance therapy patient Priority: Secondary Status: Chronic (7) Restless leg syndrome Priority: Secondary Status: Chronic - Discharge Medications Prescriptions: Amoxicillin 500 mg PO TID 5 Days Atropine 1% Opth Drops 4 drop SL Q1H PRN #1 bottle PRN Reason: upper airway secretions LORazepam [Lorazepam] 1 mg IJ Q4H PRN 30 Days PRN Reason: anxiety/restlessness Morphine Oral CONC [Roxanol] 5 - 10 mg PO Q1H PRN #15 oral.syg PRN Reason: Dyspnea PredniSONE 10 mg PO DAILY 20 Days Sennosides [Senokot] 8.6 mg PO BID #8 tablet Home Medications: Aclidinium [place] [Tudorza Pressair] 400 mcg IH BID 09/16/16 [History] Albuterol Sulfate [Proair Hfa] 1 puff IH Q4H PRN 09/16/16 [History] Fluticasone/Salmeterol [Advair 100-50 Diskus] 1 puff IH BID 09/16/16 [History] GuaiFENesin ER [Mucinex] 600 mg PO BID 09/16/16 [History] Lisinopril/Hydrochlorothiazide [Zestoretic 20-25 mg Tablet] 1 tab PO DAILY 09/16 [History] Methadone Oral Concentrate [Methadone] 65 mg PO DAILY 09/16/16 [History] Omeprazole [PriLOSEC] 20 mg PO DAILY 09/16/16 [History] Ropinirole HCl [Requip] 10 mg PO DAILY 09/16/16 [History] Amlodipine [Norvasc] 10 mg PO DAILY #30 tablet 09/21/16 [Rx] Tiotropium [Spiriva] 18 mcg IH DAILY 11/25/16 [History] Amoxicillin 500 mg PO TID 5 Days 11/30/16 [Rx] Atropine 1% Opth Drops 4 drop SL Q1H PRN #1 bottle 11/30/16 [Rx] LORazepam [Lorazepam] 1 mg IJ Q4H PRN 30 Days 11/30/16 [Rx] Morphine Oral CONC [Roxanol] 5 - 10 mg PO Q1H PRN #15 oral.syg 11/30/16 [Rx] PredniSONE 10 mg PO DAILY 20 Days 11/30/16 [Rx] Sennosides [Senokot] 8.6 mg PO BID #8 tablet 11/30/16 [Rx] Allergies/Adverse Reactions: Allergies iodine Allergy (Verified 09/16/16 22:18) See Comments PATIENT DOES NOT KNOW REACTION- LISTED ON [facility] LAST APPT tramadol Allergy (Verified 08/03/16 15:58) Itching ketorolac [From Toradol] Adverse Reaction (Verified 08/03/16 14:05) Headache nalbuphine [From Nubain] Adverse Reaction (Verified 08/03/16 14:05) Vomiting Date of admission: 11/25/16 15:03 Primary care physician: Elizabeth Celeste DO Consults: 11/26/16 09:15 Consult to Assessment Manager [CONS] Routine Reason for SW Consult: Discharge and home needs. 11/26/16 09:22 Consult to Occupational Therapy [CONS] Routine Comment: Evaluate, develop and implement POC Consult to Physical Therapy [CONS] Routine Comment: Evaluate, develop and implement POC 11/27/16 18:45 Consult to Palliative Care [CONS] Routine Comment: Consulting Provider: Palliative Care [place] - Patient Status Disposition: Hospice - Home Condition: Serious Overall status at discharge: patient is not back to baseline - Discharge Instructions Follow Up With: Elizabeth Celeste DO [Primary Care Provider] - Yfn Merrill DO [Partnered Physician] - 12/21/16 1:30 pm Additional Instructions: Follow with hospice services at home. Taper prednisone and complete 5 more days of amoxicillin. Continue oxygen at home. Continue Ativan as needed. Continue methadone - Diet and Activity Activity: increase activity as tolerated, wear oxygen at all times Diet: regular diet Hospital course: Ms. Haley is a 51 year old female COPD oxygen dependent 2 Lt , diastolic CHF, current smoker, bilateral breast implants. According to the patient she was in her usual state of health up until one day prior to her admission when she started experiencing fatigue, increasing shortness of breath on exertion as well as a dry nonproductive cough. She denied any fevers chills chest/ abdominal pain nausea and diarrhea. She did admit to vomiting. She is also had some sick contacts: grandchildren with upper respiratory infection. She is on oxygen at 2 L nasal cannula and has been using breathing treatments with little relief. The symptoms continued until this morning the patient has been intubated in the past she has a fear of being reintubated and decided to be evaluated before respiratory status worsened. According to ER documentation upon arrival of EMS patient's oxygen saturation was in the 70s. She was placed on 4 L nasal cannula was given a DuoNeb's. Her oxygenation did improve up into the 90s, however on arrival to the ER oxygen saturation decreased back down to the 80s she again was given DuoNeb as well as IV steroids. Hypoxia improved chest x-ray was obtained and did not reveal any pneumonia lab work unremarkable with no elevation in white count. She was tachycardic at 115 on presentation and afebrile blood pressure 185/95. She was admitted for further workup and evaluation. The patient was continued on IV steroids, Levaquin was started. Due to her symptoms the patient requested to be a DNR CC arrest DNI and to have a consult with the palliative care service. The patient prefers at the moment to be discharged home on hospice. Currently she is on 4 L of oxygen. Time spent discussing smoking cessation with patient: 3 to 10 minutes - Time Spent with Patient Total time spent providing and/or coordinating discharge services: Greater than 30 minutes (40 min) - Constitutional Vitals: Temp Pulse Resp BP Pulse Ox 96.9 F L 89 18 115/71 95 11/30/16 07:12 11/30/16 07:12 11/30/16 07:12 11/30/16 07:12 11/30/16 07:12 General appearance: Present: cachectic, A&O X 3, severe distress, underweight, answers questions appropriately - Head Head exam: Present: atraumatic, normocephalic - Eye Eye exam: Present: PERRL, conjuntiva pink, sclera anicteric Pupils: Present: PERRL - Neck Neck exam general surgery: Present: supple, trachea midline. Absent: lymphadenopathy - Respiratory Respiratory exam: Present: decreased breath sounds, CTAB. Absent: accessory muscle use, rales, rhonchi, wheezes - Cardiovascular Cardiovascular exam: Present: RRR, +S1, +S2. Absent: diastolic murmur, gallop, rubs, systolic murmur - GI/Abdominal GI/Abdominal exam: Present: normal bowel sounds, soft, no peritoneal signs. Absent: distended, tenderness - Extremities Exam Extremities exam: Present: warm, radial pulses palpable and symetrical. Absent : calf tenderness, cyanotic, pedal edema - Neurological Exam Neurological exam: Present: CN II-XII intact, oriented X3, no focal deficits. Absent: pronater drift, facial droop, speech deficit Additional comments: Severe kyphosis/the formation of the spine - Skin Skin exam: Present: dry, intact
--- NOTE | 2016-11-30 11:08 | Physician Discharge Referral ---
Home Health/Hosp Referral Info Transfer to: Hospice Provider in Charge Post Discharge: PCP - Diagnosis (1) Acute on chronic respiratory failure with hypoxemia Status: Acute (2) COPD exacerbation Status: Acute (3) Acute bronchitis Status: Acute (4) History of drug abuse Status: Acute (5) Malnutrition Status: Chronic (6) Methadone maintenance therapy patient Status: Chronic (7) Restless leg syndrome Status: Chronic - Respiratory Orders Oxygen / L per min (4 L continuously) Smoking Cessation: Smoking cessation has been advised. For more information, call the [place] [employer] Quit Line at 0-185-HHHC-NOW. - Diet/Nutrition Diet/Nutrition Orders: Regular - Services Needed Following services are medically necessary services: Nursing, Home Health Aide Home Care Orders: Follow with hospice services at home. Taper prednisone and complete 5 more days of amoxicillin. Continue oxygen at home. Continue Ativan as needed. Continue methadone - Transfer Medications Prescriptions: Amoxicillin 500 mg PO TID 5 Days Atropine 1% Opth Drops 4 drop SL Q1H PRN #1 bottle PRN Reason: upper airway secretions LORazepam [Lorazepam] 1 mg IJ Q4H PRN 30 Days PRN Reason: anxiety/restlessness Morphine Oral CONC [Roxanol] 5 - 10 mg PO Q1H PRN #15 oral.syg PRN Reason: Dyspnea PredniSONE 10 mg PO DAILY 20 Days Sennosides [Senokot] 8.6 mg PO BID #8 tablet Home Medications: Aclidinium [place] [Tudorza Pressair] 400 mcg IH BID 09/16/16 [History] Albuterol Sulfate [Proair Hfa] 1 puff IH Q4H PRN 09/16/16 [History] Fluticasone/Salmeterol [Advair 100-50 Diskus] 1 puff IH BID 09/16/16 [History] GuaiFENesin ER [Mucinex] 600 mg PO BID 09/16/16 [History] Lisinopril/Hydrochlorothiazide [Zestoretic 20-25 mg Tablet] 1 tab PO DAILY 09/16 [History] Methadone Oral Concentrate [Methadone] 65 mg PO DAILY 09/16/16 [History] Omeprazole [PriLOSEC] 20 mg PO DAILY 09/16/16 [History] Ropinirole HCl [Requip] 10 mg PO DAILY 09/16/16 [History] Amlodipine [Norvasc] 10 mg PO DAILY #30 tablet 09/21/16 [Rx] Tiotropium [Spiriva] 18 mcg IH DAILY 11/25/16 [History] Amoxicillin 500 mg PO TID 5 Days 11/30/16 [Rx] Atropine 1% Opth Drops 4 drop SL Q1H PRN #1 bottle 11/30/16 [Rx] LORazepam [Lorazepam] 1 mg IJ Q4H PRN 30 Days 11/30/16 [Rx] Morphine Oral CONC [Roxanol] 5 - 10 mg PO Q1H PRN #15 oral.syg 11/30/16 [Rx] PredniSONE 10 mg PO DAILY 20 Days 11/30/16 [Rx] Sennosides [Senokot] 8.6 mg PO BID #8 tablet 11/30/16 [Rx] Allergies/Adverse Reactions: Allergies iodine Allergy (Verified 09/16/16 22:18) See Comments PATIENT DOES NOT KNOW REACTION- LISTED ON [facility] LAST APPT tramadol Allergy (Verified 08/03/16 15:58) Itching ketorolac [From Toradol] Adverse Reaction (Verified 08/03/16 14:05) Headache nalbuphine [From Nubain] Adverse Reaction (Verified 08/03/16 14:05) Vomiting Certification: Further, I certify that my clinical findings support that this patient is homebound (i.e. absences from home require considerable and taxing effort and are for medical reasons or yazidi services or infrequently or short duration when for other reasons) because: Homebound Reason: Patient requires assistance of a person or device to safely leave home Attestation: My signature below is to certify that this patient is under my care and that I, or nurse practitioner, or a physician's psychology assistant working with me, has a face-to -face encounter with this patient.
[2016-11-30] MEDS: Budesonide/Formoterol 160/4.5 MDI IH SCH (11:27)
== END 2016-11-30 17:51 | disposition hospice, home (50) | DRG 140 ==
LOC: EMEROO 09:30 → 2NENU 09:30 → SUATTDRO 15:03 → 2ANU 11-28 16:42 → 2NENU 11-28 16:58
PROVIDERS: ADMIT Internal Medicine; ATTEND Internal Medicine